=== PATIENT | male | born 1955 | race Caucasian/White ===

== ENCOUNTER → 2017-11-01 | Outpatient (CLI) | payer OTHER ==
[~2017-11-01] VITALS: Ht 182.9 cm; Wt 143.8 kg
[~2017-11-01] MED LIST: AFRIN; ALLOPURINOL 30300 M3; AMOXICILLIN 50500 MG PO; BLEPH-105 ML OPHTHALMIC; CARVEDILOL25 MG; CIPROFLOXIN HC2.5 M1 OTIC; FLOMAX0.4 MG PO; FLONASE 0.05%50 MCG NASAL; HUMALOG KW200 UNIT/1 PO; HUMALOG100 UNIT/1; IBUPROFEN 800800 M1 PO; INDOCIN50 MG PO; INVOKANA300 MG PO; LANTUS100 UNIT/M SUBQ; LOSARTAN-HCTZ1 EAC3 PO; METFORMIN HCL500 MG PO; MUCINEX DM ER1 EAC1 PO; NORCO 5-325 TA1 EACH PO; NORVASC5 MG PO; NUVIGIL250 MG PO; OXYCODONE HCL 55 MG PO; PATANASE30.5 GM; PERCOCET PO; PREDNISONE 20 M20 M1 PO; PRILOSEC 20 MG20 MG PO; PROMETHAZINE D480 ML PO; ROXICODONE15 M1; ROXICODONE15 M1 PO; TESSALON PERLE100 MG PO; TRILIPIX135 MG; XANAX XR1 MG; ZANAFLEX4 MG PO; ZESTRIL20 MG; [UNRECOGNIZED DRUG - OTHER]
--- NOTE | ~2017-11-01 | HPC ---
[facility] [place] [address] PAIN MANAGEMENT CONSULTATION Name: RAYNALO YOONN Room #: REG ENOCH Shrestha.#: [id number] Admission: 11/01/17 Attend Phys: Abdoul Fletcher DO Discharge: Date of : 51 Report #: [id number] THIS REPORT FOR: //name// CC: Abdoul Smith DATE OF SERVICE: 11/09/2017 REFERRING PHYSICIAN: Shelby Smith DO. CHIEF COMPLAINT: Anterior thigh pain, bilateral lower extremity pain with paresthesias, peripheral neuropathy. HISTORY OF PRESENT ILLNESS: As you know, the patient is a 62-year-old male, referred to our service for anterior thigh pain, bilateral lower extremity pain and paresthesia secondary to peripheral neuropathic pain. He has been diagnosed with progressively worsening diabetic peripheral neuropathy, believed to be the source of his symptoms. He was referred to our clinic to assist with medication management. He returns today in followup visit here at our [facility] office for refill of medications. He is taking Roxicodone 15 mg 3 times a day and does note good benefit with its use. He returns today requesting refill of this medication. We discussed at length today the CDC's guidelines for opioid medication usage. He is taking currently 67.5 morphine equivalents a day under the 90 morphine equivalent recommended. He returns today with 80% improvement in overall pain, requesting refill of medications. ALLERGIES: CODEINE, FENTANYL. CURRENT MEDICATIONS: Allopurinol, alprazolam, Tessalon Perles, Invokana, Triplex, Flonase, guaifenesin, metformin, Indocin, Humalog, lispro, Zestril, losartan/hydrochlorothiazide, oxycodone. SOCIAL HISTORY: The patient denies current tobacco use. He is a reformed smoker. Denies IV or illicit drug use. Denies any chronic alcohol use. He is unaccompanied today. IMAGING: No new imaging available. PQRS: The patient has known osteoarthritis. No rheumatoid arthritis. He is not a fall risk, has not had a fall in last 3 months. He is treated for hypertension, but is not taking any blood thinners. He is placing his pain score today at 3/10. He is at a moderate risk for opioid abuse given his history of chronic smoking. PHYSICAL EXAMINATION: VITAL SIGNS: Blood pressure 154/80, pulse 70, respiratory rate 18, unlabored. [facility] [address] [place] [address] PAIN MANAGEMENT CONSULTATION Name: ALO DAVIS Room #: REG CLI [facility].#: [id number] Admission: 11/01/17 Attend Phys: Abdoul Fletcher DO Discharge: Date of : 51 Report #: [id number] The patient 93% on room air, height 6 feet tall, weight 317 pounds, BMI calculated 43. GENERAL: Well-developed, well-nourished, well-hydrated, class 3 morbidly obese, 62-year-old male. He appears his stated age. He is placing pain score today around 3/10. HEENT: Normocephalic, atraumatic. Pupils are equal, round, reactive to light. Extraocular muscles are intact. EXTREMITIES: Show no clubbing, no cyanosis, no edema. MUSCULOSKELETAL: Seated straight leg raising negative. Supine straight leg raising negative. ANTWAN test negative. Modified Gaenslen's positive for axial low back pain. Ankle clonus negative. Babinski is negative. ASSESSMENT: 1. Bilateral lower extremity peripheral neuropathy. 2. Opioid dependency. 3. Diabetic peripheral neuropathy. 4. Morbid obesity. 5. Chronic intractable pain. PLAN: 1. The patient returns today in followup visit here at our [facility] office for refill of medications. Apparently, he was having difficulty obtaining an appointment at our [facility] office where he typically goes for medication management. He will be transferring back to their clinic to see Dr. Madrid in the future, but at present, he is out of his medication and need refills. He has been appropriate with the use of medication. He has not called for early refills nor is he asked for changes in the therapy. He appears to be doing well and is under the recommended CDC guidelines of no more than 90 morphine equivalents a day. We did discuss the possibility of adjusting medications in the very near future if CDC guidelines change, but at present, he is doing well and we wish to make no changes in therapy. 2. The patient was provided prescription of oxycodone 15 mg dose 1 tab p.o. t.i.d. I have given the patient #90, releases of today, 4 weeks from today, 8 weeks from today, 3 months' worth of medication. 3. The patient will follow up with Dr. Madrid at the [facility] office. If this is not possible, he can return to our clinic here at [facility] for continuation of therapy. <ELECTRONICALLY SIGNED> By: Abdoul Fletcher DO 11/15/17 0935 0830 [id number] Abdoul Fletcher DO /nt
[2017-11-01 12:38] VITALS: BP 154/80
== END ==
LOC: PAIN 07:05
DX: E11.42 Type 2 diabetes mellitus with diabetic polyneuropathy (principal); G62.9 Polyneuropathy, unspecified; G89.4 Chronic pain syndrome; E66.01 Morbid (severe) obesity due to excess calories; F11.20 Opioid dependence, uncomplicated

== ENCOUNTER → 2018-01-24 | Outpatient (CLI) | payer OTHER ==
[~2018-01-24] VITALS: Ht 182.9 cm; Wt 144.2 kg
[~2018-01-24] MED LIST changes: -ZESTRIL20 MG; +ZESTRIL20 MG PO
--- NOTE | ~2018-01-24 | HPC ---
[facility] [place] [address] PAIN MANAGEMENT CONSULTATION Name: CANDIEllenALO YOONN Room #: REG [facility] TitaSangeetaCarlene.#: [id number] Admission: 01/24/18 Attend Phys: Abdoul Fletcher DO Discharge: Date of : 53 Report #: [id number] THIS REPORT FOR: //name// CC: Abdoul Motley DATE OF SERVICE: 01/24/2018 REFERRING PHYSICIAN: Shelby Smith DO CHIEF COMPLAINT: Anterior thigh pain, bilateral lower extremity pain with paresthesias, peripheral neuropathy. HISTORY OF PRESENT ILLNESS: As you know, the patient is a 62-year-old male referred to our service for anterior thigh pain, bilateral lower extremity pain and paresthesias secondary to peripheral neuropathy. He has been diagnosed with progressively worsening diabetic peripheral neuropathy, believed to be the source of his symptoms. We originally saw the patient in our clinic at [facility]. He transferred his care to our [place] office for continuation of management of pain issues. He returns today in followup visit requesting refill on medications. He states pain is intermittent, shooting, burning, stabbing, places current pain score 2/10. States his pain is exacerbated with sitting, lying down, improves with medications, rest and relaxation as well as better control of his diabetes. He returns today in followup visit for medication management. He is denying any side effects with therapy. He has had no changes in medical history or any changes in his medications since our last visit. ALLERGIES: CODEINE, FENTANYL. CURRENT MEDICATIONS: Allopurinol, alprazolam, Tessalon Perles, Invokana, Triplex, Flonase, guaifenesin, metformin, Indocin, Humalog, lispro, Zestril, losartan and hydrochlorothiazide, oxycodone. SOCIAL HISTORY: He denies current use of tobacco. He is a former smoker. Denies IV or illicit drug use. Denies any chronic alcohol use. He is unaccompanied today. IMAGING: No new imaging available. PQRS: The patient has osteoarthritis of the bilateral hips, bilateral knees, low back. He does not have any rheumatoid arthritis. He is not a fall risk, has not had a fall in the last 3 months. He is treated for hypertension, but no blood thinners. He places his current pain score 2/10. Pain impact score 25/70, [id number]. [address] [address] PAIN MANAGEMENT CONSULTATION Name: ALO DAVIS Room #: REG CLI [facility]#: [id number] Admission: 01/24/18 Attend Phys: Abdoul Fletcher DO Discharge: Date of : 51 Report #: [id number] PHYSICAL EXAMINATION: VITAL SIGNS: Blood pressure 155/92, pulse 84, respiratory rate 22, unlabored. The patient is 97% on room air, height 6 feet tall, weight 317.5 pounds, BMI calculated 43.1. GENERAL: Well-developed, well-nourished, well-hydrated, class 3, morbidly obese 62-year-old male appearing stated age. He is in no acute distress. He is placing current pain score 2/10. HEENT: Normocephalic, atraumatic. Pupils equal, round, reactive to light. EXTREMITIES: Show no clubbing, no cyanosis, no edema. MUSCULOSKELETAL: Seated straight leg raising negative. Supine straight leg raising negative. Nae's test negative. Modified Gaenslen's positive for axial low back pain. Ankle clonus negative. Babinski is negative. There are no rashes, lesions or ulcerations over the lower legs. There is minor noted venous stasis in lower extremities. ASSESSMENT: 1. Bilateral lower extremity peripheral neuropathy. 2. Opioid dependency. 3. Diabetic peripheral neuropathy. 4. Morbid obesity. 5. Chronic intractable pain. PLAN: 1. The patient returns today in followup visit for medication management. We have reviewed the patient's recent drug screen, which was positive for oxycodone and its metabolites, otherwise normal urine drug screen. This is part of our monitoring program. After review of his drug screen, we discussed the continuation of opioid management. He feels the medications at 15 mg 3 times a day is working well for pain control. A total of 67 mg morphine equivalents per day. This is well into the higher range of medication use. I did describe to the patient our desire to keep him below 50 morphine equivalents a day. We will discuss a weaning at our next visit with the addition of a neuropathic pain medication to address his neuropathic symptoms. At this point, the patient wishes to continue his current medication therapy with adjustments being made at next visit to reduce his dose of oxycodone to a more appropriate baseline level. The patient is amenable and will make this adjustment at next visit. 2. The patient was provided prescription of oxycodone 15 mg dose 1 tab p.o. t.i.d., I have given the patient #90, releases of today, 4 weeks from today, 8 weeks from today, 3 months' worth of medication. 3. The patient will return to our clinic in 3 months. At that time, we will [address] [address] PAIN MANAGEMENT CONSULTATION Name: ALO DAVIS Room #: REG ENOCH Alba#: [id number] Admission: 01/24/18 Attend Phys: Abdoul Fletcher DO Discharge: Date of : 51 Report #: [id number] adjust his oxycodone medication and add neuropathic medication to address neuropathy of the lower extremity secondary to diabetes mellitus. <ELECTRONICALLY SIGNED> By: Abdoul Fletcher DO 01/25/18 1201 0742 1044 Abdoul Fletcher DO /nt
[2018-01-24 10:36] VITALS: BP 155/92
== END ==
LOC: PAIN 07:14
DX: E11.42 Type 2 diabetes mellitus with diabetic polyneuropathy (principal); E66.01 Morbid (severe) obesity due to excess calories; G89.4 Chronic pain syndrome; M79.662 Pain in left lower leg; F11.20 Opioid dependence, uncomplicated

== ENCOUNTER → 2018-07-05 | Outpatient (CLI) | payer OTHER ==
[~2018-07-05] VITALS: Ht 182.9 cm; Wt 143.0 kg
[~2018-07-05] MED LIST changes: +CRESTOR20 MG PO; +LEVEMIR100 UNIT/1 PO; +RANITIDINE HCL300 MG PO; +VIAGRA100 MG PO
--- NOTE | ~2018-07-05 | HPC ---
[facility] [place] [place] [address] PAIN MANAGEMENT CONSULTATION Name: RYANALO YOONN Room #: REG ENOCH RiversSangeetaCarlene.#: [id number] Admission: 07/05/18 Attend Phys: Abdoul Fletcher DO Discharge: Date of : 51 Report #: [id number] THIS REPORT FOR: //name// CC: Abdoul Smith DO DATE OF SERVICE: 07/05/2018 REFERRING PHYSICIAN: Shelby Smith DO. CHIEF COMPLAINT: Anterior thigh pain, bilateral lower extremity pain with paresthesias and peripheral neuropathy. HISTORY OF PRESENT ILLNESS: As you know, the patient is a 63-year-old male referred to our service for anterior thigh pain, bilateral lower extremity pain with paresthesias secondary to peripheral neuropathy. He has been diagnosed with progressively worsening diabetic peripheral neuropathy, believed to be the source of his symptoms. We have stabilized the patient on a dose of Percocet for which he received good benefit. He takes oxycodone 15 mg 3 times a day, total of 45 mg on a daily basis maximum equating to 67.5 morphine equivalents a day, below the CDC's recommended no greater than 90 morphine equivalents a day. He returns today in followup visit indicating a pain level of around 2/10, states that the medication in combination with changes in his daily activities, have improved his pain allowing him to go about activities of daily living without significant pain interference. He returns today to review recent drug screens as part of our monitoring program for our chronic opioid patients and to receive refill of medications. ALLERGIES: CODEINE and FENTANYL. CURRENT MEDICATIONS: Percocet, lovastatin, Viagra, ranitidine, Levemir, indomethacin, tizanidine, omeprazole, metformin, allopurinol, lisinopril, alprazolam, Invokana, losartan, hydrochlorothiazide and lispro. SOCIAL HISTORY: The patient denies current tobacco use. He is a reformed smoker. Denies IV or illicit drug use. Denies any chronic alcohol use. He is retired. He is unaccompanied today. IMAGING DATA: No new imaging available. PHYSICAL EXAMINATION: VITAL SIGNS: Blood pressure 135/67, pulse 71 and respiratory rate 14 and unlabored. The patient 93% on room air. Height 6 feet tall, weight 315.2 pounds and BMI calculated 42.7. GENERAL: Well-developed, well-nourished, well-hydrated, class 3, [place] [address] PAIN MANAGEMENT CONSULTATION Name: ALO DAVIS [facility] [id number] Admission: 07/05/18 Attend Phys: Abdoul Fletcher DO Discharge: Date of : 53 Report #: [id number] 63-year-old male, appears stated age, placing current pain score somewhere between 1-2/10. HEENT: Normocephalic an atraumatic. Pupils equal, round and reactive to light. Extraocular muscles are intact. Sclerae nonicteric without injection. NEUROLOGICAL: Cranial nerves 2 through 12 grossly intact. Speech is fluent. The patient deemed a fair historian. LUNGS: Clear. No wheeze, rhonchi or rales. CARDIOVASCULAR: Regular. No appreciable gallop or rub. ABDOMEN: Soft, obese and nontender. EXTREMITIES: Showing no clubbing, no cyanosis and no edema. MUSCULOSKELETAL: Seated straight leg raising remains negative. Supine straight leg raising negative. Nae's test negative. Modified Gaenslen's positive for some axial low back pain without radiation below the buttock area. Muscle bulk and tone is symmetrical in lower extremities. Gait appears normal. Tactile sensations are reportedly reduced in the distal portions of the L5 and S1 dermatomes. ASSESSMENT: 1. Bilateral lower extremity peripheral neuropathy. 2. Opioid dependency. 3. Diabetic peripheral neuropathy. 4. Morbid obesity. 5. Chronic intractable pain. PLAN: 1. The patient has returned today in followup visit for medication management. He feels medications are working beneficially for pain control. He is denying any side effects to medication including sleepiness, disorientation, confusion, mental slowing or constipation. He wishes to continue the therapy as directed. 2. We have reviewed the patient's recent drug screen obtained on 05/17/2017. It is showing positive for oxycodone, negative for all other illicit substances. 3. We will see the patient back in followup visit in 3 months for medication therapy to receive refill of medications. 4. We reviewed the fact that opiate medications are being used to provide analgesia adequate to support activities of daily living, not attempting to achieve a specific pain score on the 0-10 Visual Analog Scale. The current opiate medications are providing sufficient analgesia to allow the patient to participate in activities of daily living. The patient is not exhibiting any aberrant behavior suggestive of drug diversion. The patient is not having any adverse reactions to medications. The patient is not suffering from daytime somnolence or mental acuity changes. The patient is managing opiate-induced constipation with appropriate bybw-dcn-kljtehy agents and dietary considerations. The patient was counseled on concern for caution with operating a motor vehicle while using opiate medications. A physical exam was performed and the patient's functional status was evaluated. [address] [address] PAIN MANAGEMENT CONSULTATION Name: ALO DAVIS Room #: REG [facility]#: [id number] Admission: 07/05/18 Attend Phys: Abdoul Fletcher DO Discharge: Date of : 53 Report #: [id number] All patients with back pain were advised against the bed rest greater than 4 days and were advised to return to normal activities. Pain score assessment was noted and the treatment plan was reviewed with the patient. All current medications, both prescribed and OTC were reviewed and reconciled on the electronic medical record. Tobacco screening was accomplished and smoking cessation was advised when indicated. BMI was noted and diet/exercise modification was recommended for all patients following outside normal parameters. I reviewed with the patient today their responsibilities to safeguard prescription medications, reviewed their responsibility to utilize medications only as prescribed by the physician. They are to seek and receive pain medications only from 1 physician group ( [facility]). They are to use 1 pharmacy and keep the clinic informed if they change pharmacies. Their responsibilities include making followup visits in a timely fashion and to avoid abrupt discontinuation of medication usage. Their responsibilities further include bringing their medications (bottles from the pharmacy with residual pills) to the visit for possible confirmation of pill counts and the patient understands it is their responsibility to submit to random drug screens to ensure both that the medications prescribed are present, and that no other controlled substances are present. All prescriptions provided today were generated electronically. 5. The patient was provided prescription of oxycodone 15 mg dose 1 tab p.o. t.i.d. I have given the patient #90, releases of today, 4 weeks from today, 8 weeks from today, 3 months' worth of medication. Total morphine equivalents 67.5 morphine equivalents per day. By: [id number] Abdoul Fletcher DO /nt
[2018-07-05 10:15] VITALS: BP 135/67
== END ==
LOC: PAIN 07-04 11:25
DX: M79.652 Pain in left thigh (principal); E11.40 Type 2 diabetes mellitus with diabetic neuropathy, unspecified; F17.200 Nicotine dependence, unspecified, uncomplicated; Z72.89 Other problems related to lifestyle; Z79.899 Other long term (current) drug therapy; Z79.891 Long term (current) use of opiate analgesic

== ENCOUNTER → 2018-09-22 | Outpatient (CLI) | payer OTHER ==
[~2018-09-22] VITALS: Ht 182.9 cm; Wt 142.4 kg
[2018-09-22 10:11] VITALS: BP 143/87
--- NOTE | 2018-09-22 10:15 | NUR ---
Pain Clinic Assessment: 1. History of Osteoarthritis: Not Applicable History of Rheumatoid Arthritis: Not Applicable 2. Height: 6 ft. 0 in. 182.9 cm. Weight: 314.0 lb. oz. 142.430 kg. Patient's BMI: 42.6 3. Vital Signs: BP: 143/87 Pulse: 75 Resp: 16 Temp: 02 Sat: 96 ECG Mon: 4. Pain Intensity: 2 5. Fall Risk: Dizziness: N Needs help standing or walking: N Fallen in the last 3 months: N Fall risk comments: 6. Patient on Blood Thinner: None 7. History of Hypertension: Y 8. Opioid Therapy greater than 6 weeks: Y Opiate Contract Signed: 01/24/18 9. Risk Assessment Tool Provided: Opioid Risk Tool 10. Functional Assessment Tool: 11. Recreational Drug Use: Never Drug Type: Tobacco Use: Former Smoker Tobacco Type: Amount or Packs/day: How Many Years: Alcohol Use: No Frequency: Quant:
--- NOTE | 2018-09-25 14:00 | HPC ---
[facility] [place] [address] PAIN MANAGEMENT CONSULTATION Name: ALO DAVIS Room #: REG Devorah Alba#: [id number] Admission: 09/22/18 ������������������ Attend Phys: Ester Linares Discharge: ������������������ Date of : 51 Report #: [id number] THIS REPORT FOR: //name// CC: Ester Smith DATE OF SERVICE: 09/22/2018 CHIEF COMPLAINT: Anterior thigh pain with bilateral lower extremity pain with paracentesis and peripheral neuropathy. HISTORY OF PRESENT ILLNESS: This is a very pleasant 63-year-old gentleman who returns to the pain clinic today for his anterior thigh pain secondary to his peripheral neuropathy. He was diagnosed with diabetic peripheral neuropathy and he has been stable on his Percocet for quite some time. He tells me that it is a sharp, burning, shooting, stabbing pain in his left thigh, but his pain medicine is very helpful in relieving this and rates his pain score as a 2/10 today. He tells me that he does not have any constipation. His pain is worse when he is sitting and standing. He tells me he is having to change his primary care doctor who has moved from out of the [facility] system. He will now be seeing a nurse practitioner at [facility] for his medications other than his narcotics because of the changes from his long-term primary care doctor moving this new place where he is going, we will not fill his Xanax for him, so he is seeing a psychiatrist for his anxiety issues that will refill his Xanax that he takes on a p.r.n. basis. The patient just needs a refill of his medications today. ALLERGIES: CODEINE, FENTANYL. MEDICATIONS: Oxycodone 15 mg every 8 hours p.r.n., Crestor 20 mg daily, Viagra as needed, Zantac 300 mg at bedtime, Levemir 100 units at bedtime, Indocin 50 mg daily, tizanidine 4 mg t.i.d. as needed, omeprazole 20 mg daily, metformin 1000 mg b.i.d., Humalog 80 units prior to meals, losartan, hydrochlorothiazide daily, Invokana 300 mg daily, Trilipix 135 mg daily, Xanax as needed, lisinopril 20 mg daily and allopurinol 300 mg daily. PQRS: 1. The patient denies any osteoarthritis or rheumatoid arthritis. 2. Height is 6 feet, weight is 314, BMI is 42. 3. Vital signs: Blood pressure 143/87, pulse is 75, respirations 16, oxygen sat is 96. 4. Pain score is 2. 5. Fall risk. Denies dizziness, does not need help walking or standing and has not fallen in the last 3 months. 6. The patient is not on any blood thinners. He does take medicines for hypertension. 7. Opioid therapy is greater than 6 weeks; therefore, an opioid signed contract [address] [address] PAIN MANAGEMENT CONSULTATION Name: ALO DAVIS Room #: REG CL Anjali#: [id number] Admission: 09/22/18 ������������������ Attend Phys: Ester Linares Discharge: ������������������ Date of : 51 Report #: [id number] is on the chart. His risk assessment tool is low. His functional assessment is 25/70. 8. Recreational drug use, he denies. He is not a smoker and does not drink alcohol. We did check the prescription monitoring system. The patient is filling appropriately all of his medications from Dr. Fletcher. We will repeat the drug screen on his next visit. He is due for that. PHYSICAL EXAMINATION: GENERAL: This is a well-developed, well-nourished, well-hydrated, class 3, morbidly obese 63-year-old gentleman who appears his stated age, placing his pain score 2 today. HEENT: Normocephalic, atraumatic. Pupils equal, round and reactive to light. Extraocular eye muscles are intact. MUSCULOSKELETAL: Seated straight leg raising remains negative. Muscle bulk and tone is symmetrical in lower extremities. Gait appears normal. Does complain of pain in his left outer aspect of his thigh. ASSESSMENT: 1. Bilateral lower extremity peripheral neuropathy. 2. Opioid dependency. 3. Diabetic peripheral neuropathy. 4. Morbid obesity. 5. Chronic intractable pain. We reviewed the fact that opiate medications are being used to provide analgesia adequate to support activities of daily living, not attempting to achieve a specific pain score on the 0-10 Visual Analog Scale. The current opiate medications are providing sufficient analgesia to allow the patient to participate in activities of daily living. The patient is not exhibiting any aberrant behavior suggestive of drug diversion. The patient is not having any adverse reactions to medications. The patient is not suffering from daytime somnolence or mental acuity changes. The patient is managing opiate-induced constipation with appropriate mfbe-ici-pvjqawm agents and dietary considerations. The patient was counseled on concern for caution with operating a motor vehicle while using opiate medications. A physical exam was performed and the patient's functional status was evaluated. All patients with back pain were advised against the bed rest greater than 4 days and were advised to return to normal activities. Pain score assessment was noted and the treatment plan was reviewed with the patient. All current medications, both prescribed and OTC were reviewed and reconciled on the electronic medical record. Tobacco screening was accomplished and smoking cessation was advised when indicated. BMI was noted and diet/exercise modification was recommended for all patients following outside normal parameters. [facility] [address] [place] [address] PAIN MANAGEMENT CONSULTATION Name: ALO DAVIS Room #: REG ENOCH Shrestha.#: [id number] Admission: 09/22/18 ������������������ Attend Phys: Ester Linares Discharge: ������������������ Date of : 51 Report #: [id number] I reviewed with the patient today their responsibilities to safeguard prescription medications, reviewed their responsibility to utilize medications only as prescribed by the physician. They are to seek and receive pain medications only from 1 physician group ( [facility]). They are to use 1 pharmacy and keep the clinic informed if they change pharmacies. Their responsibilities include making followup visits in a timely fashion and to avoid abrupt discontinuation of medication usage. Their responsibilities further include bringing their medications (bottles from the pharmacy with residual pills) to the visit for possible confirmation of pill counts and the patient understands it is their responsibility to submit to random drug screens to ensure both that the medications prescribed are present, and that no other controlled substances are present. All prescriptions provided today were generated electronically. PLAN: 1. The patient returns to the pain clinic today for refill of his medications. He tells me that they are very helpful. He denies any constipation or overmedication or sedation with this medication. He tells me that he takes them as needed basis, sometimes only requiring [address] Madrid did come and see the patient at this time and we refilled his oxycodone 15 mg every 8 hours #90 for today, 4-week release and 8-week release. 2. The patient tells me that he has changed primary care doctors, so that he is able to stay in the [facility] system, so he is able to get his insulin at a much reduced cost due to a senior data integration developer they have. He tells me that it cost him $12 a month where if he stayed with his primary care doctor that has moved out of the [facility] system, it would be $3000 a month. I do not have the doctor's name currently, but the patient will get that to us, so we can send dictations to them. He will also be seeing a psychiatrist now for his Xanax refills. I did talk to the patient about benzodiazepine and opioids. He has been on both of these for a long time, but we did discuss the risks of taking these together. 3. The patient will be seen in 3 month time period. The patient was seen in collaboration with Dr. Gonzalez Madrid who saw the patient and myself today. ��������������������������������������������� <ELECTRONICALLY SIGNED> ���������������������������������������� By: Ester Linares ��������������������������������������������� 09/25/18 1400 [id number] Ester Linares /krystal
== END ==
LOC: PAIN 09-20 13:38
DX: E11.42 Type 2 diabetes mellitus with diabetic polyneuropathy (principal); E66.8 Other obesity; G89.29 Other chronic pain; Z88.5 Allergy status to narcotic agent; Z88.8 Allergy status to other drugs, medicaments and biological substances; Z79.84 Long term (current) use of oral hypoglycemic drugs; Z79.891 Long term (current) use of opiate analgesic

== ENCOUNTER → 2018-12-18 | Outpatient (CLI) | payer OTHER ==
[~2018-12-18] VITALS: Ht 182.9 cm; Wt 139.1 kg
[2018-12-18 11:02] VITALS: BP 129/70
--- NOTE | 2018-12-18 11:12 | NUR ---
Pain Clinic Assessment: 1. History of Osteoarthritis: Not Applicable History of Rheumatoid Arthritis: Not Applicable 2. Height: 6 ft. 0 in. 182.9 cm. Weight: 306.6 lb. oz. 139.073 kg. Patient's BMI: 41.6 3. Vital Signs: BP: 129/70 Pulse: 76 Resp: 16 Temp: 02 Sat: 97 ECG Mon: 4. Pain Intensity: 1 5. Fall Risk: Dizziness: N Needs help standing or walking: N Fallen in the last 3 months: N Fall risk comments: 6. Patient on Blood Thinner: None 7. History of Hypertension: Y 8. Opioid Therapy greater than 6 weeks: Y Opiate Contract Signed: 01/24/18 9. Risk Assessment Tool Provided: Opioid Risk Tool 10. Functional Assessment Tool: 11. Recreational Drug Use: Never Drug Type: Tobacco Use: Former Smoker Tobacco Type: Amount or Packs/day: How Many Years: Alcohol Use: No Frequency: Quant:
--- NOTE | 2018-12-19 09:04 | HPC ---
[facility] [place] [address] PAIN MANAGEMENT CONSULTATION Name: RYANALO YOONN Room #: REG [facility] Henrietta.#: [id number] Admission: 12/18/18 ������������������ Attend Phys: Ester Linares Discharge: ������������������ Date of : 51 Report #: [id number] THIS REPORT FOR: //name// CC: Ester Smith DATE OF SERVICE: 12/18/2018 CHIEF COMPLAINT: Anterior thigh pain with bilateral lower extremity pain and paresthesias and peripheral neuropathy. HISTORY OF PRESENT ILLNESS: This is a very pleasant 63-year-old gentleman who returns to the pain clinic today for his anterior thigh pain secondary to peripheral neuropathy. He was diagnosed with diabetic peripheral neuropathy in the past and has been very stable on his current pain regimen. He tells me his pain score is a 1 today. He takes 1 pill twice a day with occasionally requiring 4 pills a day and some days only 2. His pain is worse with sitting and standing, lying down. His medications are very helpful. He denies any problems with constipation. He does take MiraLax on a regular basis. He does not feel over sedated with this medicine. He finds that it is very helpful in keeping him active with his daily life and benefits his pain significantly. ALLERGIES: CODEINE AND FENTANYL. MEDICATIONS: Oxycodone 15 mg p.r.n., Crestor 20 mg daily, Viagra as needed, Zantac 300 mg at bedtime, Levemir at bedtime, Indocin p.r.n., tizanidine 4 mg p.r.n. spasms, Prilosec 20 mg daily, Glucophage 1000 mg b.i.d., Humalog 80 units daily, losartan/hydrochlorothiazide daily, Invokana 300 mg daily, Trilipix 135 mg daily, Xanax as needed, Zestril 20 mg daily, Nuvigil p.r.n., allopurinol 300 mg daily. PQRS: 1. Denies any history of osteoarthritis or rheumatoid arthritis. 2. Height is 6 feet, weight is 306, BMI is 41. Vital signs 129/70, pulse is 76, respirations 16, oxygen sat is 97. 3. Pain score is 1/10. 4. Fall risk. Denies dizziness. He does not need help with walking or standing. He has not fallen in the last 3 months. 5. The patient is not on any blood thinners, does take medicine for hypertension. 6. Opioid therapy is greater than 6 weeks; therefore, an opioid signed contract is on the chart. His risk assessment tool is low. His functional assessment is 25/70. 7. Recreational drug use, he denies. He is a former smoker and does not drink alcohol. [address] [address] PAIN MANAGEMENT CONSULTATION Name: ALO DAVISN Room #: REG CL Anjali#: [id number] Admission: 12/18/18 ������������������ Attend Phys: Ester Linares Discharge: ������������������ Date of : 51 Report #: [id number] We did check the prescription monitoring system. The patient is filling appropriately for his narcotics from doctors within our clinic. He is on time for his medication fill. We will check a random urine drug screen on this patient today. PHYSICAL EXAMINATION: GENERAL: This is a well-developed, well-nourished, well-hydrated class 3, morbidly obese 63-year-old gentleman who appears his stated age. Placing his pain score today at 1/10. He is alert and oriented. HEENT: Normocephalic, atraumatic. Pupils equal, round and reactive to light. Extraocular eye muscles are intact. Mucous membranes are moist. MUSCULOSKELETAL: Seated straight leg raising remains negative. Muscle bulk and tone is symmetrical in his lower extremities. Gait appears normal. He complains of left outer aspect pain in his left thigh. ASSESSMENT: 1. Bilateral lower extremity peripheral neuropathy. 2. Opioid dependency. 3. Diabetic peripheral neuropathy. 4. Morbid obesity. 5. Chronic intractable pain. We reviewed the fact that opiate medications are being used to provide analgesia adequate to support activities of daily living, not attempting to achieve a specific pain score on the 0-10 Visual Analog Scale. The current opiate medications are providing sufficient analgesia to allow the patient to participate in activities of daily living. The patient is not exhibiting any aberrant behavior suggestive of drug diversion. The patient is not having any adverse reactions to medications. The patient is not suffering from daytime somnolence or mental acuity changes. The patient is managing opiate-induced constipation with appropriate lioa-ixp-cqoyaue agents and dietary considerations. The patient was counseled on concern for caution with operating a motor vehicle while using opiate medications. A physical exam was performed and the patient's functional status was evaluated. All patients with back pain were advised against the bed rest greater than 4 days and were advised to return to normal activities. Pain score assessment was noted and the treatment plan was reviewed with the patient. All current medications, both prescribed and OTC were reviewed and reconciled on the electronic medical record. Tobacco screening was accomplished and smoking cessation was advised when indicated. BMI was noted and diet/exercise modification was recommended for all patients following outside normal parameters. I reviewed with the patient today their responsibilities to safeguard prescription medications, reviewed their responsibility to utilize medications [address] [address] PAIN MANAGEMENT CONSULTATION Name: ALO DAVIS Room #: REG [facility]#: [id number] Admission: 12/18/18 ������������������ Attend Phys: Ester JAEGER Vijay Discharge: ������������������ Date of : 51 Report #: [id number] only as prescribed by the physician. They are to seek and receive pain medications only from 1 physician group ( [facility]). They are to use 1 pharmacy and keep the clinic informed if they change pharmacies. Their responsibilities include making followup visits in a timely fashion and to avoid abrupt discontinuation of medication usage. Their responsibilities further include bringing their medications (bottles from the pharmacy with residual pills) to the visit for possible confirmation of pill counts and the patient understands it is their responsibility to submit to random drug screens to ensure both that the medications prescribed are present, and that no other controlled substances are present. All prescriptions provided today were generated electronically. PLAN: 1. We discussed treatment options with the patient today. The patient finds the medications are very helpful in controlling his pain and would like refills of that medication today. Scripts given for oxycodone 15 mg #90 for today, 4 and 8-week release. According to the CDC guidelines, the patient falls in his current morphine milliequivalent at 90. It is a hardship for the patient to come every [address], [address] Dr. Abdoul Fletcher does allow him to come every 3 months since he has been stable on his medications for quite some time. 2. We did discuss side effects and complications of overmedication and constipation, but he feels like he is doing quite well on his current regimen. 3. Dr. Brayden Feng did see the patient today, partner of Dr. Fletcher, and collaborated care. The patient will return in 3 months for a followup appointment. ��������������������������������������������� <ELECTRONICALLY SIGNED> ���������������������������������������� By: Ester Linares ��������������������������������������������� 12/19/18 0904 [id number] [id number] Ester Linares /nt
== END ==
LOC: PAIN 06:45
DX: G89.29 Other chronic pain (principal); E11.42 Type 2 diabetes mellitus with diabetic polyneuropathy; G62.9 Polyneuropathy, unspecified; E66.8 Other obesity; Z88.8 Allergy status to other drugs, medicaments and biological substances; Z88.5 Allergy status to narcotic agent; Z79.899 Other long term (current) drug therapy; Z79.891 Long term (current) use of opiate analgesic; Z68.41 Body mass index [BMI] 40.0-44.9, adult

== ENCOUNTER → 2019-03-14 | Outpatient (CLI) | payer OTHER ==
[~2019-03-14] VITALS: Ht 182.9 cm; Wt 137.5 kg
[2019-03-14 13:16] VITALS: BP 141/77
--- NOTE | 2019-03-14 13:32 | NUR ---
Pain Clinic Assessment: 1. History of Osteoarthritis: Not Applicable History of Rheumatoid Arthritis: Not Applicable 2. Height: 6 ft. 0 in. 182.9 cm. Weight: 303.2 lb. oz. 137.531 kg. Patient's BMI: 41.1 3. Vital Signs: BP: 141/77 Pulse: 66 Resp: 18 Temp: 02 Sat: 96 ECG Mon: 4. Pain Intensity: 2 5. Fall Risk: Dizziness: N Needs help standing or walking: N Fallen in the last 3 months: N Fall risk comments: 6. Patient on Blood Thinner: None 7. History of Hypertension: Y 8. Opioid Therapy greater than 6 weeks: Y Opiate Contract Signed: 01/24/18 9. Risk Assessment Tool Provided: Opioid Risk Tool 10. Functional Assessment Tool: 11. Recreational Drug Use: Never Drug Type: Tobacco Use: Former Smoker Tobacco Type: Amount or Packs/day: How Many Years: Alcohol Use: No Frequency: Quant:
--- NOTE | 2019-03-15 15:33 | HPC ---
[facility] [address] [address] PAIN MANAGEMENT CONSULTATION Name: ALO DAVISN Room #: REG [facility]#: [id number] Admission: 03/14/19 Attend Phys: Ester Linares Discharge: Date of : 51 Report #: [id number] THIS REPORT FOR: //name// CC: Ester Linares Physician staff RICH VILLARREAL DATE OF SERVICE: 03/14/2019 CHIEF COMPLAINT: Anterior left thigh pain with bilateral lower extremity pain and paresthesias and peripheral neuropathy. HISTORY OF PRESENT ILLNESS: This is a very pleasant 64-year-old gentleman who returns to the pain clinic today for refill of his medications. He tells me he does average 3 pain pills a day, some days he has less pain is able to take one, other days his pain is exacerbated and he does take 4 pills a day. Today, he reports a pain score of 2/10 and it is a burning, sharp, stabbing, electrical pain in his left outer thigh. It is exacerbated by sitting and standing as well as lying down. His medications are very beneficial he feels. He denies any problems with daytime sleepiness or constipation with this medication. ALLERGIES: CODEINE AND FENTANYL. CURRENT LIST OF MEDICATIONS: Oxycodone 15 mg every 8 hours p.r.n., Crestor, Viagra, Zantac, Levemir, Indocin, tizanidine, Prilosec, Glucophage, Humalog, losartan/hydrochlorothiazide, Invokana, Trilipix, Xanax, Zestril, and allopurinol. PQRS: 1. He denies any history of osteoarthritis or rheumatoid arthritis. 2. Height is 6 feet, weight is 303, BMI is 41. 3. Vital signs: Blood pressure 141/77, pulse is 66, respirations 18, oxygen sat is 96. 4. Pain score is 2/10. 5. Fall risk: He denies dizziness. He does not need any help walking or standing, has not fallen in the last 3 months. 6. The patient is not on any blood thinners. He does take medicine for hypertension. 7. Opiate therapy is greater than 6 weeks; therefore, an opioid signed contract is on the chart. Her risk assessment tool is low. Functional assessment is 25/70. 8. Recreational drug use, he denies. He is a former smoker and does not drink alcohol. According to the prescription monitoring system, the patient is filling appropriately and is due to fill his medicine at the end of the week. We did [address] [address] PAIN MANAGEMENT CONSULTATION Name: ALO DAVIS Room #: REG Devorah Alba#: [id number] Admission: 03/14/19 Attend Phys: Ester Linares Discharge: Date of : 51 Report #: [id number] check a random drug screen on him in the last visit that was appropriate for his medications as well. PHYSICAL EXAMINATION: GENERAL: This is a well-developed, well-nourished, well-hydrated class 3, morbidly obese 64-year-old gentleman who appears his stated age. He is alert and orientated, placing his current pain score at 2/10 today. HEENT: Normocephalic. Pupils equal, round and reactive to light. Extraocular eye muscles are intact. Mucous membranes are moist. MUSCULOSKELETAL: Complains of pain in the left outer aspect of his left thigh. His seated straight leg raising remains negative. He has 4/5 strength in his lower extremities with equal Muscle bulk and tone. His gait is normal. ASSESSMENT: 1. Bilateral lower extremity peripheral neuropathy. 2. Left thigh pain. 3. Opioid dependency. 4. Diabetic peripheral neuropathy. 5. Morbid obesity. 6. Chronic intractable pain. We reviewed the fact that opiate medications are being used to provide analgesia adequate to support activities of daily living, not attempting to achieve a specific pain score on the 0-10 Visual Analog Scale. The current opiate medications are providing sufficient analgesia to allow the patient to participate in activities of daily living. The patient is not exhibiting any aberrant behavior suggestive of drug diversion. The patient is not having any adverse reactions to medications. The patient is not suffering from daytime somnolence or mental acuity changes. The patient is managing opiate-induced constipation with appropriate emco-eru-zvclvxc agents and dietary considerations. The patient was counseled on concern for caution with operating a motor vehicle while using opiate medications. A physical exam was performed and the patient's functional status was evaluated. All patients with back pain were advised against the bed rest greater than 4 days and were advised to return to normal activities. Pain score assessment was noted and the treatment plan was reviewed with the patient. All current medications, both prescribed and OTC were reviewed and reconciled on the electronic medical record. Tobacco screening was accomplished and smoking cessation was advised when indicated. BMI was noted and diet/exercise modification was recommended for all patients following outside normal parameters. I reviewed with the patient today their responsibilities to safeguard prescription medications, reviewed their responsibility to utilize medications only as prescribed by the physician. They are to seek and receive pain [address] [address] PAIN MANAGEMENT CONSULTATION Name: ALO DAVIS Room #: REG ENOCH Alba#: [id number] Admission: 03/14/19 Attend Phys: Ester Linares Discharge: Date of : 51 Report #: [id number] medications only from 1 physician group ( [facility]). They are to use 1 pharmacy and keep the clinic informed if they change pharmacies. Their responsibilities include making followup visits in a timely fashion and to avoid abrupt discontinuation of medication usage. Their responsibilities further include bringing their medications (bottles from the pharmacy with residual pills) to the visit for possible confirmation of pill counts and the patient understands it is their responsibility to submit to random drug screens to ensure both that the medications prescribed are present, and that no other controlled substances are present. All prescriptions provided today were generated electronically. PLAN: 1. We discussed treatment options with the patient today. The patient is doing quite well on this current pain regimen of oxycodone 15 mg #90 for a 1-month supply. This places the patient at 67 morphine mEq per day, which is within the CDC guidelines. Three months of his medication were given today. 2. The patient denies any problems with constipation or overmedication from these medications. 3. The patient is seen in collaboration today with Dr. Abdoul Fletcher. The patient will return in 3 months' time. <ELECTRONICALLY SIGNED> By: Ester Linares 03/15/19 1533 [id number] Ester Linares /krystal
== END ==
LOC: PAIN 07:00
DX: M79.652 Pain in left thigh (principal); G89.4 Chronic pain syndrome; E11.42 Type 2 diabetes mellitus with diabetic polyneuropathy; F11.20 Opioid dependence, uncomplicated; E66.01 Morbid (severe) obesity due to excess calories; Z88.8 Allergy status to other drugs, medicaments and biological substances; Z79.899 Other long term (current) drug therapy

== ENCOUNTER → 2019-06-05 | Outpatient (CLI) | payer OTHER ==
[~2019-06-05] VITALS: Ht 182.9 cm; Wt 132.5 kg
[2019-06-05 08:09] VITALS: BP 123/87
--- NOTE | 2019-06-05 08:14 | NUR ---
Pain Clinic Assessment: 1. History of Osteoarthritis: Not Applicable History of Rheumatoid Arthritis: Not Applicable 2. Height: 6 ft. 0 in. 182.9 cm. Weight: 292.0 lb. oz. 132.451 kg. Patient's BMI: 39.6 3. Vital Signs: BP: 123/87 Pulse: 75 Resp: 16 Temp: 02 Sat: 94 ECG Mon: 4. Pain Intensity: 2.5 5. Fall Risk: Dizziness: N Needs help standing or walking: N Fallen in the last 3 months: N Fall risk comments: 6. Patient on Blood Thinner: None 7. History of Hypertension: Y 8. Opioid Therapy greater than 6 weeks: Y Opiate Contract Signed: 01/24/18 9. Risk Assessment Tool Provided: Opioid Risk Tool 10. Functional Assessment Tool: 11. Recreational Drug Use: Never Drug Type: Tobacco Use: Former Smoker Tobacco Type: Amount or Packs/day: How Many Years: Alcohol Use: No Frequency: Quant:
--- NOTE | 2019-06-05 12:48 | HPC ---
[facility] [place] [address] PAIN MANAGEMENT CONSULTATION Name: ALO DAVIS Room #: REG [facility].#: [id number] Admission: 06/05/19 Attend Phys: Abdoul Fletcher DO Discharge: Date of : 51 Report #: [id number] THIS REPORT FOR: //name// CC: Abdoul Fletcher Physician staff RICH Hargrove DATE OF SERVICE: 06/05/2019 CHIEF COMPLAINT: Low back pain, anterior thigh pain, bilateral lower extremity pain with paresthesias. HISTORY OF PRESENT ILLNESS: As you know, the patient is a very pleasant 64-year-old male who returns today in followup visit for refill of medications. He is placing pain intensity around 2-1/2/10. The patient unfortunately has recently lost his . Apparently 3 weeks ago, the patient and his were getting ready to leave for an appointment when she had a massive cerebrovascular accident leading to her demise. He has been quite depressed and has been dealing with this recent . He states that the activities around this and the planning and activities he has to do has exacerbated his pain. He has been taking his medication appropriately, but does indicate a higher pain level today. He returns today in followup visit for refill of medications. He indicates no other changes in his medical history. No injury, no trauma. He returns requesting refill of medications stating no side effects to medications. ALLERGIES: CODEINE AND FENTANYL. CURRENT MEDICATIONS: Oxycodone, lovastatin, Viagra, ranitidine, insulin, indomethacin, tizanidine, omeprazole, metformin, losartan, hydrochlorothiazide, Invokana, fenofibric acid, lisinopril, and allopurinol. SOCIAL HISTORY: The patient denies tobacco, alcohol, or IV illicit drug use. He is unaccompanied to today's visit. IMAGING: There is no new imaging available. PHYSICAL EXAMINATION: VITAL SIGNS: Blood pressure 123/87, pulse 75, respiratory rate 16 and unlabored. The patient is 94% on room air, height 6 feet tall, weigh 292 pounds, BMI calculated 39.6. GENERAL: Well-developed, well-nourished, well-hydrated exogenously obese 64-year-old male appearing stated age, pain is rated around 2-1/2 0/10. HEENT: Normocephalic, atraumatic. Pupils are equal, round, reactive to light. EXTREMITIES: Show no clubbing, no cyanosis, no edema. MUSCULOSKELETAL: Seated straight leg raising [place] [address] PAIN MANAGEMENT CONSULTATION Name: ALO DAVIS Room #: REG [facility].#: [id number] Admission: 06/05/19 Attend Phys: Abdoul Fletcher DO Discharge: Date of : 51 Report #: [id number] raising positive. Nae's test is negative. Modified Gaenslen's positive for axial low back pain. Gait appears somewhat antalgic. He is using a cane for ambulation. Lower extremity strength is reduced, but symmetrical. ASSESSMENT: 1. Bilateral lower extremity peripheral neuropathy. 2. Lumbar radiculopathy. 3. Diabetic peripheral neuropathy. 4. Opioid dependency. 5. Chronic intractable pain. PLAN: 1. The patient has returned today in followup visit to receive refill on medications for which he takes for pain control. He reports no side effects of sleepiness, disorientation, confusion, of mental slowing with use of therapy. He has been appropriate with his medication. Recent urine drug screen was reviewed that was obtained 12/18/2018 which shows positive for oxycodone and metabolites no other illicit substances. We have also reviewed the patient's PDMP and he is filling the medications appropriately. We reviewed the fact that opiate medications are being used to provide analgesia adequate to support activities of daily living, not attempting to achieve a specific pain score on the 0-10 Visual Analog Scale. The current opiate medications are providing sufficient analgesia to allow the patient to participate in activities of daily living. The patient is not exhibiting any aberrant behavior suggestive of drug diversion. The patient is not having any adverse reactions to medications. The patient is not suffering from daytime somnolence or mental acuity changes. The patient is managing opiate-induced constipation with appropriate ijkg-anj-jbhesuz agents and dietary considerations. The patient was counseled on concern for caution with operating a motor vehicle while using opiate medications. A physical exam was performed and the patient's functional status was evaluated. All patients with back pain were advised against the bed rest greater than 4 days and were advised to return to normal activities. Pain score assessment was noted and the treatment plan was reviewed with the patient. All current medications, both prescribed and OTC were reviewed and reconciled on the electronic medical record. Tobacco screening was accomplished and smoking cessation was advised when indicated. BMI was noted and diet/exercise modification was recommended for all patients following outside normal parameters. I reviewed with the patient today their responsibilities to safeguard prescription medications, reviewed their responsibility to utilize medications only as prescribed by the physician. They are to seek and receive pain medications only from 1 physician group ([facility]). They are to use [address] [address] PAIN MANAGEMENT CONSULTATION Name: ALO DAVIS Room #: REG ENOCH Alba#: [id number] Admission: 06/05/19 Attend Phys: Abdoul Fletcher DO Discharge: Date of : 51 Report #: [id number] pharmacy and keep the clinic informed if they change pharmacies. Their responsibilities include making followup visits in a timely fashion and to avoid abrupt discontinuation of medication usage. Their responsibilities further include bringing their medications (bottles from the pharmacy with residual pills) to the visit for possible confirmation of pill counts and the patient understands it is their responsibility to submit to random drug screens to ensure both that the medications prescribed are present, and that no other controlled substances are present. All prescriptions provided today were generated electronically. 2. The patient was provided a prescription of oxycodone 15 mg dose 1 tab p.o. t.i.d., I have given the patient #90, releasing today, 4 weeks from today, 8 weeks from today, 3 months' worth of medication. The patient did request that we release his current prescription early as he does have plans to undergo a trip and will be leaving before his prescription is ready to be released. We have agreed to provide this early release on the first dose of therapy. The patient will drop this off with his pharmacy and have them contact us in regard to this early release. 3. We will see the patient back in followup visit in 3 months, we wish him a good holiday season. We will see him back for refill of medications in 3 months. <ELECTRONICALLY SIGNED> By: Abdoul Fletcher DO 06/05/19 [id number] Abdoul Fletcher DO /krystal
== END ==
LOC: PAIN 06:41
DX: M54.16 Radiculopathy, lumbar region (principal); E11.42 Type 2 diabetes mellitus with diabetic polyneuropathy; F11.20 Opioid dependence, uncomplicated; G89.4 Chronic pain syndrome

== ENCOUNTER → 2019-08-21 | Outpatient (CLI) | payer OTHER ==
[~2019-08-21] VITALS: Ht 182.9 cm; Wt 129.1 kg
[2019-08-21 12:46] VITALS: BP 106/68
--- NOTE | 2019-08-21 13:00 | NUR ---
Pain Clinic Assessment: 1. History of Osteoarthritis: Not Applicable History of Rheumatoid Arthritis: Not Applicable 2. Height: 6 ft. 0 in. 182.9 cm. Weight: 284.6 lb. oz. 129.094 kg. Patient's BMI: 38.6 3. Vital Signs: BP: 106/68 Pulse: 73 Resp: 16 Temp: 02 Sat: 95 ECG Mon: 4. Pain Intensity: 2 5. Fall Risk: Dizziness: N Needs help standing or walking: N Fallen in the last 3 months: N Fall risk comments: 6. Patient on Blood Thinner: None 7. History of Hypertension: Y 8. Opioid Therapy greater than 6 weeks: Y Opiate Contract Signed: 01/24/18 9. Risk Assessment Tool Provided: Opioid Risk Tool 10. Functional Assessment Tool: 11. Recreational Drug Use: Never Drug Type: Tobacco Use: Former Smoker Tobacco Type: Amount or Packs/day: How Many Years: Alcohol Use: No Frequency: Quant:
--- NOTE | 2019-08-22 08:57 | HPC ---
[facility] [address] [address] PAIN MANAGEMENT CONSULTATION Name: ALO DAVIS Room #: REG [facility] MKaycee.#: [id number] Admission: 08/21/19 Attend Phys: Ester Linares Discharge: Date of : 51 Report #: [id number] THIS REPORT FOR: //name// CC: Ester Fletcher DO DATE OF SERVICE: 08/21/2019 CHIEF COMPLAINT: Low back pain, anterior thigh pain, bilateral lower extremity pain and paresthesias. HISTORY OF PRESENT ILLNESS: This is a very pleasant 64-year-old gentleman who returns to the pain clinic today for refill of his medications. He is reporting a pain score of 2/10. He feels that the medications are very beneficial in controlling his pain. He feels that he is on a good regimen with no side effects as a result and he feels that it is very beneficial in controlling his pain. He is able to be as active as he would like on his current regimen. The patient is tearful through some of his visit today. He reports that he lost his dog 3 days ago and that on top of losing his about 6 months ago, he reports that it has been a very difficult time for him. ALLERGIES: CODEINE AND FENTANYL. CURRENT LIST OF MEDICATIONS: Oxycodone 15 mg t.i.d. p.r.n., Crestor, Viagra, Zantac, insulin, indomethacin, tizanidine, omeprazole, Glucophage, Humalog, losartan, Invokana, Xanax, Trilipix, Zestril and allopurinol. PQRS: 1. He denies any osteo or rheumatoid arthritis. 2. Height is 6 feet, weight is 284, BMI is 38. 3. Vital signs 106/68, pulse is 73, respirations 16, oxygen sat is 95. 4. Pain score is 2/10. 5. Denies dizziness, does not need help walking or standing, has not fallen in the last 3 months. 6. The patient is not on any blood thinners, but does take medicine for hypertension. Opioid therapy is greater than 6 weeks; therefore, an opiate signed contract is on the chart. 7. Risk assessment tool is low. Functional assessment is 2570. 8. Recreational drug use, he denies. He is a former smoker and does not drink alcohol. According to the prescription monitoring system, the patient is filling appropriately from our physician in an appropriate timeframe. He is due next week to fill his medications. There is a recent drug screen on the chart that [address] [address] PAIN MANAGEMENT CONSULTATION Name: CANDIEllenALO DAMARI [id number] Admission: 08/21/19 Attend Phys: Ester Linares Discharge: Date of : 53 Report #: [id number] is appropriate as well. According to the CDC guidelines, his morphine mEq per day is 60. PHYSICAL EXAMINATION: GENERAL: This is alert and orientated, well-developed exogenously obese 64-year-old gentleman, rating his pain score at 2/10. HEENT: Normocephalic, atraumatic. Pupils equal, round and reactive to light. EXTREMITIES: No clubbing, no cyanosis, no edema. MUSCULOSKELETAL: Gait appears somewhat antalgic. He does use a cane for ambulation. Lower extremity is symmetrical and reduced at 4/5. Seated straight leg raising is negative. ASSESSMENT: 1. Bilateral lower extremity peripheral neuropathy. 2. Lumbar radiculopathy. 3. Diabetic peripheral neuropathy. 4. Opioid dependency. 5. Chronic intractable pain. We reviewed the fact that opiate medications are being used to provide analgesia adequate to support activities of daily living, not attempting to achieve a specific pain score on the 0-10 Visual Analog Scale. The current opiate medications are providing sufficient analgesia to allow the patient to participate in activities of daily living. The patient is not exhibiting any aberrant behavior suggestive of drug diversion. The patient is not having any adverse reactions to medications. The patient is not suffering from daytime somnolence or mental acuity changes. The patient is managing opiate-induced constipation with appropriate qoeu-gsx-yvnwnhv agents and dietary considerations. The patient was counseled on concern for caution with operating a motor vehicle while using opiate medications. PLAN: 1. We discussed treatment options with the patient today. The patient finds the medications very beneficial in controlling his pain with limited or no side effects of sleepiness, disorientation constipation issues. He feels they are very beneficial. We will have Dr. Abdoul Fletcher e-prescribe oxycodone 15 mg #90 for today 4-week and 8-week to his pharmacy. 2. The patient did see Dr. Abdoul Fletcher today who also helped collaborate care. The patient is instructed to call for an appointment when he fills his last prescription. He verbalizes understanding. <ELECTRONICALLY SIGNED> By: Ester Linares 08/22/19 0857 1514 [id number] Ester Linares /krystal
== END ==
LOC: PAIN 06:50
DX: M54.16 Radiculopathy, lumbar region (principal); E11.42 Type 2 diabetes mellitus with diabetic polyneuropathy; R20.2 Paresthesia of skin; G89.4 Chronic pain syndrome; F11.20 Opioid dependence, uncomplicated; Z79.899 Other long term (current) drug therapy; Z88.5 Allergy status to narcotic agent; Z88.8 Allergy status to other drugs, medicaments and biological substances

== ENCOUNTER → 2019-11-21 | Outpatient (CLI) | payer OTHER ==
[~2019-11-21] VITALS: Ht 182.9 cm; Wt 131.9 kg
--- NOTE | ~2019-11-21 | HPC ---
[facility] [place] [place] [address] PAIN MANAGEMENT CONSULTATION Name: ALO DAVIS Room #: REG [facility]..#: [id number] Admission: 11/21/19 Attend Phys: Ester Linares Discharge: Date of : 51 Report #: [id number] THIS REPORT FOR: cc: RICH VILLARREAL Physician not on staff Ester Linares ~ CC: Ester Linares Physician staff RICH VILLARREAL DATE OF SERVICE: 11/21/2019 CHIEF COMPLAINT: Low back pain, anterior thigh pain, bilateral lower extremity pain and paresthesias. HISTORY OF PRESENT ILLNESS: This is a 64-year-old gentleman who returns to the pain clinic today for a refill of his opioid medications that he finds very beneficial in helping relieve his pain that is mostly centrally located in his left anterior thigh, though he does have ongoing low back pain as well. He reports a pain score today at 3/10 that he describes as a stabbing, numbness and occasionally burning pain. It is worse with sitting and lying down and prolonged walking. He feels the medications are very beneficial and he denies any problems with daytime sleepiness or constipation as a result of the side effects from these medications. ALLERGIES: CODEINE AND FENTANYL. MEDICATIONS: Oxycodone 15 mg p.r.n., Crestor, Viagra, Levemir, Indocin, tizanidine, omeprazole, Glucophage, Humalog, losartan/hydrochlorothiazide, Invokana, fenofibrate, alprazolam, lisinopril and allopurinol. PQRS: 1. The patient denies any osteoarthritis or rheumatoid arthritis. 2. Height is 6 feet, weight is 290, BMI is 39. 3. Vital signs 123/69, pulse is 75, respirations 16, oxygen sat is 96. 4. Pain score is 3/10. 5. Denies dizziness, does not need help walking or standing, has not fallen in the last 3 months. 6. The patient is not on any blood thinners, but does take medicine for hypertension. Opioid therapy is greater than 6 weeks; therefore, an opioid signed contract is on the chart. Risk assessment is low. Functional assessment is . 7. Recreational drug use, he denies. He is a former smoker and does not drink alcohol. According to the prescription monitoring system, the patient has been filling [facility] [address] [place] [address] PAIN MANAGEMENT CONSULTATION Name: ALO DAVIS Room #: REG ENOCH Alba#: [id number] Admission: 11/21/19 Attend Phys: Ester Linares Discharge: Date of : 51 Report #: [id number] appropriately for his medications in a timely fashion. According to the CDC guidelines, his morphine mEq is 67 MMEs per day. There is a recent drug screen on the chart that we will repeat at his next visit. It is appropriate as well on his medications that he currently takes from us. He does take alprazolam from another physician and does understand the opioid, benzodiazepine risk. He tells me he takes his alprazolam very sparingly, not on a daily basis. PHYSICAL EXAMINATION: GENERAL: This is alert and orientated, morbidly obese 64-year-old gentleman who appears his stated age, placing his current pain score at 3/10 today. HEENT: Normocephalic, atraumatic. Pupils equal, round and reactive to light. EXTREMITIES: No clubbing, no cyanosis, no edema. MUSCULOSKELETAL: Seated straight leg raising is negative. Gait appears somewhat antalgic. He is using a cane for ambulation. His lower extremity strength is reduced, but symmetrical bilaterally. Numbness and tingling per his report and his left thigh. ASSESSMENT: 1. Bilateral lower extremity peripheral neuropathy. 2. Lumbar radiculopathy. 3. Diabetic peripheral neuropathy. 4. Opioid dependency. 5. Chronic intractable pain. We reviewed the fact that opiate medications are being used to provide analgesia adequate to support activities of daily living, not attempting to achieve a specific pain score on the 0-10 Visual Analog Scale. The current opiate medications are providing sufficient analgesia to allow the patient to participate in activities of daily living. The patient is not exhibiting any aberrant behavior suggestive of drug diversion. The patient is not having any adverse reactions to medications. The patient is not suffering from daytime somnolence or mental acuity changes. The patient is managing opiate-induced constipation with appropriate pcyi-bwl-kvxivzg agents and dietary considerations. The patient was counseled on concern for caution with operating a motor vehicle while using opiate medications. PLAN: 1. We discussed treatment options with the patient today. The patient finds his oxycodone very beneficial from Dr. Abdoul Fletcher. He reports he does take 2-3 tablets a day. He has been able to go slightly longer than a month in between some of his fills due to the fact of taking less on some days when he is having less pain. Today, we will have Dr. Abdoul Fletcher electronically signed his oxycodone 15 mg, #90, for today, 4-week and 8-week release to his [facility] pharmacy. 2. The patient understands the risk of COVID and has been very careful. He is wearing a mask today. He is worried that he will get the virus and he has been [address] [address] PAIN MANAGEMENT CONSULTATION Name: ALO DAVIS [facility] [id number] Admission: 11/21/19 Attend Phys: Ester Linares Discharge: Date of : 51 Report #: [id number] staying home for the majority of the time, though he states he is not having any problem with depression since he has been staying home. Due to the fact that he is not as active, he has been able to take less of his medications, which I continued to encourage in case there is a disruption of the supply chain. The patient is worried about going through withdrawal. I explained to him if he is not able to get his medicines, instructed to call us and we will discuss withdrawal-type symptoms to him, but hopefully this will not be the case. 3. The patient will be seen again in 3 months. The patient is seen today in collaboration with Dr. Abdoul Fletcher. By: [id number] Ester Linares /nt
[2019-11-21 12:41] VITALS: BP 123/69
--- NOTE | 2019-11-21 12:53 | NUR ---
Pain Clinic Assessment: 1. History of Osteoarthritis: Not Applicable History of Rheumatoid Arthritis: Not Applicable 2. Height: 6 ft. 0 in. 182.9 cm. Weight: 290.8 lb. oz. 131.906 kg. Patient's BMI: 39.4 3. Vital Signs: BP: 123/69 Pulse: 75 Resp: 16 Temp: 02 Sat: 96 ECG Mon: 4. Pain Intensity: 3 5. Fall Risk: Dizziness: N Needs help standing or walking: N Fallen in the last 3 months: N Fall risk comments: 6. Patient on Blood Thinner: None 7. History of Hypertension: Y 8. Opioid Therapy greater than 6 weeks: Y Opiate Contract Signed: 01/24/18 9. Risk Assessment Tool Provided: Opioid Risk Tool 10. Functional Assessment Tool: 11. Recreational Drug Use: Never Drug Type: Tobacco Use: Former Smoker Tobacco Type: Amount or Packs/day: How Many Years: Alcohol Use: No Frequency: Quant:
== END ==
LOC: PAIN 07:14
DX: M54.16 Radiculopathy, lumbar region (principal); E11.51 Type 2 diabetes mellitus with diabetic peripheral angiopathy without gangrene; G89.4 Chronic pain syndrome; Z79.891 Long term (current) use of opiate analgesic

== ENCOUNTER → 2020-02-12 | Outpatient (CLI) | payer OTHER ==
[~2020-02-12] VITALS: Ht 182.9 cm; Wt 130.1 kg
[2020-02-12 12:38] VITALS: BP 128/68
--- NOTE | 2020-02-12 12:56 | NUR ---
Pain Clinic Assessment: 1. History of Osteoarthritis: DENIES History of Rheumatoid Arthritis: DENIES 2. Height: 6 ft. 0 in. 182.9 cm. Weight: 286.8 lb. oz. 130.092 kg. Patient's BMI: 38.9 3. Vital Signs: BP: 128/68 Pulse: 75 Resp: 20 Temp: 02 Sat: 97 ECG Mon: 4. Pain Intensity: 3 5. Fall Risk: Dizziness: N Needs help standing or walking: N Fallen in the last 3 months: N Fall risk comments: 6. Patient on Blood Thinner: None 7. History of Hypertension: Y 8. Opioid Therapy greater than 6 weeks: Y Opiate Contract Signed: 01/24/18 9. Risk Assessment Tool Provided: Opioid Risk Tool 10. Functional Assessment Tool: 11. Recreational Drug Use: Never Drug Type: Tobacco Use: Former Smoker Tobacco Type: Amount or Packs/day: How Many Years: Alcohol Use: No Frequency: Quant:
--- NOTE | 2020-02-13 09:57 | HPC ---
[facility] [place] [address] PAIN MANAGEMENT CONSULTATION Name: RYANALO WETZEL Room #: REG [facility]..#: [id number] Admission: 02/12/20 Attend Phys: Ester Linares Discharge: Date of : 51 Report #: [id number] THIS REPORT FOR: cc: RICH VILLARREAL not on staff Ester Linares ~ CC: ARABELLA LOMBARDO DO DATE OF SERVICE: 02/12/2020 CHIEF COMPLAINT: Low back pain, anterior thigh pain, bilateral lower extremity pain and paresthesias. HISTORY OF PRESENT ILLNESS: This is a 64-year-old gentleman who is well known to the pain clinic. He returns today for refill of his medications that he takes to help treat his ongoing left anterior thigh pain. He does have some ongoing low back pain as well. He feels that the medications have been beneficial and denies any problems with constipation or daytime somnolence as a result of the medications. The patient does report that he does have anxiety disorders and does take alprazolam from his primary care doctor. He finds that this is beneficial in helping him relax. He understands that he should not take this with his opioid medications and has not been doing them. He states his pain has been slightly better lately since he has been staying home. 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 He feels that overall his pain has decreased slightly since we have seen him last. He is rating his pain score of 3/10 today, worse with walking and movement. Overall, he feels well controlled and would like refills of his medications. ALLERGIES: FENTANYL and CODEINE. CURRENT LIST OF MEDICATIONS: Oxycodone 15 mg t.i.d. p.r.n., Viagra, Levemir, indomethacin, Zanaflex, Prilosec, Glucophage, Humalog, losartan/hydrochlorothiazide, Invokana, Trilipix, Xanax, Zestril, and allopurinol. PQRS: 1. He denies any rheumatoid or osteoarthritis. 2. Height is 6 feet, weight is 286, BMI is 38.9, this is down 4 pounds since our last visit. 3. Vital signs 128/68, pulse is 75, respirations 20, oxygen sat is 97%. 4. Pain score is 3/10. 5. Denies dizziness, does not need help walking or standing, has not fallen in the last 3 months. 6. The patient is not on any blood thinners, [place] [address] PAIN MANAGEMENT CONSULTATION Name: ALO DAVIS [facility]: [facility] [id number] Admission: 02/12/20 Attend Phys: Ester Linares Discharge: Date of : 51 Report #: [id number] hypertension. 7. Opioid therapy is greater than 6 weeks; therefore, an opioid signed contract is on the chart. Risk assessment tool is low. Functional assessment is 30/70. 8. Recreational drug use, he denies. He is a former smoker and does not drink alcohol. According to the prescription monitoring system, the patient is due to fill his medications this week, filling them in a timely fashion. Again, he reports he does not take his alprazolam and oxycodone at the same time. According to the CDC guidelines, his morphine milliequivalent is 67 MMEs per day. We will collect a random drug screen on this patient today since it has not been tested for greater than a year. PHYSICAL EXAMINATION: GENERAL: This is alert and orientated, obese, well-developed 64-year-old gentleman who appears his stated age, placing his current pain score at 3/10. HEENT: Normocephalic, atraumatic. Extraocular eye muscles are intact. He is wearing a mask. EXTREMITIES: No clubbing, no cyanosis, no edema. MUSCULOSKELETAL: He has numbness and tingling in his left anterior thigh per his report. Gait appears somewhat antalgic. Lower extremity strength is reduced, but symmetrical. Seated straight leg raising is negative. Modified Gaenslen's is positive for axial low back pain. ASSESSMENT: 1. Bilateral lower extremity peripheral neuropathy. 2. Lumbar radiculopathy. 3. Diabetic peripheral neuropathy. 4. Opioid dependency. 5. Chronic intractable pain. We reviewed the fact that opiate medications are being used to provide analgesia adequate to support activities of daily living, not attempting to achieve a specific pain score on the 0-10 Visual Analog Scale. The current opiate medications are providing sufficient analgesia to allow the patient to participate in activities of daily living. The patient is not exhibiting any aberrant behavior suggestive of drug diversion. The patient is not having any adverse reactions to medications. The patient is not suffering from daytime somnolence or mental acuity changes. The patient is managing opiate-induced constipation with appropriate agrf-ixi-dbkgvak agents and dietary considerations. The patient was counseled on concern for caution with operating a motor vehicle while using opiate medications. PLAN: 1. We discussed treatment options with the patient today. He feels the medications are beneficial with very limited side effects. We will refill his [facility] [address] [place] [address] PAIN MANAGEMENT CONSULTATION Name: ALO DAVIS Room #: REG [facility]#: [id number] Admission: 02/12/20 Attend Phys: Ester Linares Discharge: Date of : 51 Report #: [id number] oxycodone 15 mg for today, 4-week and 8-week releases for #[address] Arabella Lombardo will send this electronically to his pharmacy. 2. The patient has lost 4 pounds since we have last seen him. 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 He was unable to do that due to COVID virus, so he has been busy at home. Otherwise, he has not changed his diet to lose this weight. 3. We will collect a random drug screen on this patient. 4. The patient is seen in collaboration with Dr. Arabella Lombardo. <ELECTRONICALLY SIGNED> By: Ester Linares 02/13/20 0957 [id number] Ester Linares /nt
== END ==
LOC: PAIN 06:57
PROVIDERS: ATTEND Clinical Nurse Specialist Adult Health
DX: E11.42 Type 2 diabetes mellitus with diabetic polyneuropathy (principal); M54.5 Low back pain; M79.605 Pain in left leg; M79.604 Pain in right leg; R20.2 Paresthesia of skin; G89.29 Other chronic pain; M54.16 Radiculopathy, lumbar region; F11.20 Opioid dependence, uncomplicated; Z88.8 Allergy status to other drugs, medicaments and biological substances

== ENCOUNTER → 2020-05-06 | Outpatient (CLI) | payer OTHER ==
--- NOTE | 2020-05-06 14:29 | HPC ---
[facility] [place] [address] PAIN MANAGEMENT CONSULTATION Name: ALO DAVIS Room #: REG [facility].#: [id number] Admission: 05/06/20 Attend Phys: Ester Linares Discharge: Date of : 51 Report #: [id number] CC: Ester Fletcher DO Physician staff RICH VILLARREAL MD DATE OF SERVICE: 05/06/2020 This is a Telemed appointment due to the patient experiencing symptoms of COVID that he has consented for from 8:55 to 9:15. CHIEF COMPLAINT: Low back pain, anterior thigh pain, bilateral lower extremity pain and paresthesias. HISTORY OF PRESENT ILLNESS: This is a 65-year-old gentleman who I am speaking with today for a telemedicine appointment. He is currently experiencing a fever of 101 degrees and having stomach issues of cramping, nausea and diarrhea. He reports he is not having any respiratory symptoms, but he is going to see a primary care physician to discuss his symptoms this afternoon. The patient has had a fever for the past 3 days. The patient reports a pain score of 2/10 currently, located in his left anterior thigh. He said that has been problematic for years. It is worse when he is doing activity. Today, he is reporting to me that the medications are beneficial. Normally, does not have any constipation, of course today, he is having diarrhea and no somnolence as a result of his medication. The patient does report he has continued to try to lose weight. He is unsure how many pounds he has lost since our last visit, though he reports he has lost some weight. He is not eating out like he had in the past prior to the of his . He is eating differently also due to the COVID virus and learning how to cook for himself. ALLERGIES: FENTANYL AND CODEINE. CURRENT LIST OF MEDICATIONS: Oxycodone 15 mg t.i.d., Crestor, Levemir, indomethacin, tizanidine, omeprazole, Glucophage, Humalog, losartan/hydrochlorothiazide, Invokana, Trilipix, alprazolam, Zestril, and allopurinol. PQRS: 1. He denies rheumatoid or osteoarthritis. 2. Height is 6 feet, unsure of weight today. 3. Vital signs were not recorded due to a telemedicine appointment. 4. Pain score is 2/10. 5. Fall risk. Denies dizziness, does not need help walking. He has not fallen in the last 3 months. 6. The patient is not on any blood thinners, but does take medicine for hypertension. 7. His opioid therapy is greater than 6 weeks; therefore, an opioid signed contract is on the chart. Risk assessment is low. Functional assessment is 30/70. 8. Recreational drug use, he denies. He is a former smoker and does not drink alcohol. According to the prescription monitoring system, the patient is due to fill his medications this week, filling them in a timely fashion. His morphine milliequivalent according to the CDC guidelines is 60. We will check a random drug screen on him at our next office visit. PHYSICAL EXAMINATION: This is a review of systems due to a telemedicine appointment. He is alert and orientated, answering all my questions appropriately, placing his current pain score at 2/10. He reports abdominal cramping today with nausea and diarrhea. No respiratory distress or issues. Pain in his right inner aspect of his thigh causing a burning sensation. ASSESSMENT: 1. Bilateral lower extremity peripheral neuropathy. 2. Lumbar radiculopathy. 3. Diabetic peripheral neuropathy. 4. Chronic opioid pain. 5. Opioid dependency. We reviewed the fact that opiate medications are being used to provide analgesia adequate to support activities of daily living, not attempting to achieve a specific pain score on the 0-10 Visual Analog Scale. The current opiate medications are providing sufficient analgesia to allow the patient to participate in activities of daily living. The patient is not exhibiting any aberrant behavior suggestive of drug diversion. The patient is not having any adverse reactions to medications. The patient is not suffering from daytime somnolence or mental acuity changes. The patient is managing opiate-induced constipation with appropriate vgmh-jwd-mytddom agents and dietary considerations. The patient was counseled on concern for caution with operating a motor vehicle while using opiate medications. PLAN: 1. We discussed treatment options with the patient today. I encouraged the patient to get COVID tested when he does see his primary care doctor this afternoon, explaining to him that nausea, diarrhea, and cramping is associated with COVID and since he does have a fever that he has had for 3 days, I encouraged him to be tested. The patient was unaware that GI symptoms were associated with COVID. He will ask to be tested this afternoon. 2. We will send electronically his oxycodone 15 mg, #90, for today and a 4-week supply. The patient then will return in 2 months. These will be sent electronically by Dr. Abdoul Fletcher. 3. We will check a random drug screen on this patient at his next visit. 4. The patient's Telemed was done in conjunction with Dr. Abdoul Fletcher today. <ELECTRONICALLY SIGNED> By: Ester Linares 05/06/20 1429 [id number] Ester Linares /nt
== END ==
LOC: TELEPC 06:50 → PAIN 06:50
PROVIDERS: ATTEND Clinical Nurse Specialist Adult Health
DX: M54.16 Radiculopathy, lumbar region (principal); R20.2 Paresthesia of skin; E11.40 Type 2 diabetes mellitus with diabetic neuropathy, unspecified; F11.20 Opioid dependence, uncomplicated; Z88.8 Allergy status to other drugs, medicaments and biological substances; Z79.899 Other long term (current) drug therapy

== ENCOUNTER → 2020-06-24 | Outpatient (CLI) | payer OTHER ==
[~2020-06-24] VITALS: Ht 182.9 cm; Wt 120.5 kg
[2020-06-24 10:05] VITALS: BP 112/61
--- NOTE | 2020-06-24 10:17 | NUR ---
Pain Clinic Assessment: 1. History of Osteoarthritis: DENIES History of Rheumatoid Arthritis: DENIES 2. Height: 6 ft. 0 in. 182.9 cm. Weight: 265.6 lb. oz. 120.476 kg. Patient's BMI: 36.0 3. Vital Signs: BP: 112/61 Pulse: 89 Resp: 16 Temp: 02 Sat: 98 ECG Mon: 4. Pain Intensity: 3 5. Fall Risk: Dizziness: N Needs help standing or walking: N Fallen in the last 3 months: N Fall risk comments: 6. Patient on Blood Thinner: None 7. History of Hypertension: Y 8. Opioid Therapy greater than 6 weeks: Y Opiate Contract Signed: 01/24/18 9. Risk Assessment Tool Provided: LOW-0 10. Functional Assessment Tool: 11. Recreational Drug Use: Never Drug Type: Tobacco Use: Former Smoker Tobacco Type: Amount or Packs/day: How Many Years: Alcohol Use: No Frequency: Quant:
--- NOTE | 2020-06-25 14:33 | HPC ---
[facility] [address] [place] [address] PAIN MANAGEMENT CONSULTATION Name: ALO DAVIS [facility] [id number] Admission: 06/24/20 Attend Phys: Ester Linares Discharge: Date of : 51 Report #: [id number] THIS REPORT FOR: cc: Shebly Smith Tara DO Hocker,Ester JAEGER ~ CC: Ester Fletcher DO DATE OF SERVICE: 06/24/2020 CHIEF COMPLAINT: Low back pain, anterior thigh pain, bilateral lower extremity pain and paresthesias. HISTORY OF PRESENT ILLNESS: This is a 65-year-old gentleman who returns to the pain clinic today for refill of his medications. We had done a telemedicine with him in May. At that time, he reported having stomach cramping, nausea and diarrhea and a fever for 3 days. We encouraged him to have a COVID test. He did not believe he had COVID but he did go and get tested at a [facility], which was positive for COVID. The patient reports he continued to have aches and pains and a fever for several more days. Now he believes he is fully recovered. He did not experience any respiratory issues throughout his illness and did not lose sense of taste or smell. The patient is here today for refills of his medication. Today, he is reporting a pain score of 3/10 in his outer left thigh and on the lateral aspect. He believes that his pain medication is very beneficial in controlling this discomfort with minimal side effects. He denies any problems with constipation or daytime somnolence. He reports it as a burning, shooting, occasional numbness feeling, especially if he is walking too long or prolonged sitting. ALLERGIES: FENTANYL AND CODEINE. CURRENT LIST OF MEDICATIONS: Oxycodone 15 mg every 8 hours, Crestor, Viagra, Levemir, Indomethacin, tizanidine, omeprazole, Glucophage, Humalog, losartan/hydrochlorothiazide, Invokana, Trilipix, alprazolam, Zestril, and allopurinol. PQRS: 1. He denies any rheumatoid or osteoarthritis. 2. Height is 6 feet, weight is 265, BMI is 36. 3. Vital signs; blood pressure 112/61, pulse is 89, respirations 16, oxygen sat is 98%. 4. Pain score is 3/10. 5. Denies any dizziness, does not need help walking or standing, has not fallen in the last 3 months. [facility] [address] [place] [address] PAIN MANAGEMENT CONSULTATION Name: ALO DAVIS Room #: REG [facility]#: [id number] Admission: 06/24/20 Attend Phys: Esetr Linares Discharge: Date of : 51 Report #: [id number] 6. The patient is not on any blood thinners. The patient has a history of hypertension. 7. Opioid therapy is greater than 6 weeks; therefore, an opioid signed contract is on the chart. Risk assessment is low. Functional assessment is 30/70. 8. Recreational drug use, he denies. He is a former smoker and does not drink alcohol. According to the prescription monitoring system, the patient is filling appropriately. He is due to fill his medications next week. His morphine milliequivalent is 67 MME per day. There is a drug screen from January that we are repeating that today, since it was positive for hydrocodone, that he did admit to taking some old medications. We will recheck this drug screen today. He is sure that there will be no further hydrocodone. He does take alprazolam and his oxycodone. PHYSICAL EXAMINATION: GENERAL: This is alert and orientated 65-year-old gentleman who appears his stated age, placing his current pain score at 3/10 today. HEENT: Normocephalic, atraumatic. Extraocular eye muscles are intact. He is wearing a mask. EXTREMITIES: No clubbing, no cyanosis, no edema. MUSCULOSKELETAL: Lower extremity strength is reduced, but symmetrical. Seated straight leg raising is negative. He does have numbness and tingling in his lateral aspect of his left thigh with diminished sensation. His gait is slightly antalgic. Modified ganglion is positive for axial low back pain. ASSESSMENT: 1. Bilateral lower extremity peripheral neuropathy. 2. Lumbar radiculopathy. 3. Diabetic peripheral neuropathy. 4. Opioid dependency. 5. Chronic intractable pain. We reviewed the fact that opiate medications are being used to provide analgesia adequate to support activities of daily living, not attempting to achieve a specific pain score on the 0-10 Visual Analog Scale. The current opiate medications are providing sufficient analgesia to allow the patient to participate in activities of daily living. The patient is not exhibiting any aberrant behavior suggestive of drug diversion. The patient is not having any adverse reactions to medications. The patient is not suffering from daytime somnolence or mental acuity changes. The patient is managing opiate-induced constipation with appropriate ylnz-fsh-pfxqfij agents and dietary considerations. The patient was counseled on concern for caution with operating a motor vehicle while using opiate medications. A physical exam was performed and the patient's functional status was evaluated. [address] [address] PAIN MANAGEMENT CONSULTATION Name: ALO DAVIS Room #: REG [facility] [id number] Admission: 06/24/20 Attend Phys: Ester Linares Discharge: Date of : 51 Report #: [id number] All patients with back pain were advised against the bed rest greater than 4 days and were advised to return to normal activities. Pain score assessment was noted and the treatment plan was reviewed with the patient. All current medications, both prescribed and OTC were reviewed and reconciled on the electronic medical record. Tobacco screening was accomplished and smoking cessation was advised when indicated. BMI was noted and diet/exercise modification was recommended for all patients following outside normal parameters. I reviewed with the patient today their responsibilities to safeguard prescription medications, reviewed their responsibility to utilize medications only as prescribed by the physician. They are to seek and receive pain medications only from 1 physician group ( [facility]). They are to use 1 pharmacy and keep the clinic informed if they change pharmacies. Their responsibilities include making followup visits in a timely fashion and to avoid abrupt discontinuation of medication usage. Their responsibilities further include bringing their medications (bottles from the pharmacy with residual pills) to the visit for possible confirmation of pill counts and the patient understands it is their responsibility to submit to random drug screens to ensure both that the medications prescribed are present, and that no other controlled substances are present. All prescriptions provided today were generated electronically. PLAN: 1. We discussed treatment options with the patient today. The patient's weight has been decreased since we last were able to wake him. He was not here in May due to the COVID virus that he had contracted, but his weight in January was 286. Today, it is 265, which is down significantly. The patient reports that he has changed his diet and has also started Invokana in the past year. He believes that may be the reason why he has lost significant weight. He will continue to monitor his weight at home. We did discuss his blood sugars, they have been running in the 110-160 on a daily basis, but since he has lost significant weight he should talk to his primary care doctor about his medications when he has his next A1c drawn. He reports it was in the range of 6 at his last visit before the weight loss. 2. We will recheck a random drug screen on the patient today. He reports not taking any further hydrocodone that he had taken in January. 3. We will refill his medication of oxycodone IR 15 mg tablets, #90. These will be released for 07/01, release in 5 weeks and release in 9 weeks. These will be sent electronically by Dr. Abdoul Fletcher to his pharmacy. The patient will return in 3 months' time period. <ELECTRONICALLY SIGNED> By: Ester Linares 06/25/20 1433 [id number] 29 Ester Linares /krystal
== END ==
LOC: PAIN 06:53
PROVIDERS: ATTEND Clinical Nurse Specialist Adult Health
DX: M54.16 Radiculopathy, lumbar region (principal); R20.2 Paresthesia of skin; G62.9 Polyneuropathy, unspecified; E11.40 Type 2 diabetes mellitus with diabetic neuropathy, unspecified; F11.20 Opioid dependence, uncomplicated; G89.29 Other chronic pain; Z88.8 Allergy status to other drugs, medicaments and biological substances; Z79.899 Other long term (current) drug therapy

== ENCOUNTER → 2020-09-23 | Outpatient (CLI) | payer OTHER ==
--- NOTE | 2020-09-23 15:01 | HPC ---
[facility] [place] [address] PAIN MANAGEMENT CONSULTATION Name: ALO DAVIS Room #: REG ENOCH Henrietta.#: [id number] Admission: 09/23/20 Attend Phys: Ester Linares Discharge: Date of : 51 Report #: [id number] THIS REPORT FOR: cc: Shelby Smith,Shelby Ponce,Ester JAEGER ~ DATE OF SERVICE: 09/23/2020 CHIEF COMPLAINT: Low back pain, anterior thigh pain, lower extremity pain and paresthesias. HISTORY OF PRESENT ILLNESS: This is a Telemed appointment that I am speaking via the telephone due to the patient's illness and fever. He has consented for this Telemed appointment, speaking from 12:55-13:10. Today, the patient reports not feeling very good, having a runny nose, but he has not lost his sense of taste or smell. He states he has been having a fever of 101 for 2 days. He did speak with his primary care doctor who encouraged him to get Thera-Flu. The patient is not going to be tested for COVID; he was diagnosed with COVID in May. I do not believe he would be positive again at this time. The patient does state that his pain in his left thigh today is a 3/10, worse with activity. It is a shooting, burning, numbness, discomfort. He believes the medications are beneficial in helping his overall pain. He does take gabapentin as well that does help with his neuropathy. He denies any constipation, though he does take a stool softener occasionally per his report. ALLERGIES: FENTANYL AND CODEINE. CURRENT LIST OF MEDICATIONS: Oxycodone 15 mg, Crestor, Viagra, Levemir, indomethacin, Zanaflex, Prilosec, Glucophage, Humalog, losartan/hydrochlorothiazide, Invokana, Trilipix, alprazolam, Zestril, allopurinol. PQRS: 1. He denies any osteo or rheumatoid arthritis. 2. Height, weight and vital signs are deferred. Pain score is 3/10 today. Fall risk, denies. Dizziness, does not need help walking, has not fallen in the last 3 months. The patient is not on any blood thinners. He does take medicine for hypertension. Opioid therapy is greater than 6 weeks; therefore, an opioid signed contract is on the chart. Risk assessment is low. Functional assessment is 30/70. 3. Recreational drug use, he denies. He is a former smoker [place] [address] PAIN MANAGEMENT CONSULTATION Name: ALO DAVIS Room #: REG [facility] DariusSangeeta#: [id number] Admission: 09/23/20 Attend Phys: Ester Linares Discharge: Date of : 51 Report #: [id number] According to the prescription monitoring system, he is due to fill his medications today. He does take alprazolam and that is monitored by his primary care doctor and appears to be filling appropriately as well. His morphine milliequivalent is 67 MMEs. There is a urine drug screen from his last visit that is appropriate for his opioid medications. It is appropriate as well. PHYSICAL EXAMINATION: Deferred. REVIEW OF SYSTEMS: He is alert and orientated, answering all my questions appropriately. He reports having a feeling of congestion in his nasal passages today, rating his pain score 3/10. He reports having a fever of 101. Pain is in his left thigh per his report. ASSESSMENT: 1. Bilateral lower extremity peripheral neuropathy. 2. Left thigh pain. 3. Opioid dependency. 4. Diabetic peripheral neuropathy. 5. Morbid obesity. 6. Chronic intractable pain, under written opioid agreement. PLAN: 1. We discussed treatment options with the patient today. The patient finds his medications are beneficial in helping with his pain. He is currently at the [facility] and would like to shrimp picker his prescriptions today if possible since he is out getting medications for his illness. We will have Dr. Abdoul Fletcher send his oxycodone 15 mg, #90, for today, release on 10/24/2020 and 11/18/2020. I explained that he is on his 28th day; his pharmacy may wait until his 30th day due to fill this medication. 2. I encouraged the patient to drink plenty of liquids since he is running a fever. I do not believe he has COVID again since he was sick and had a positive test less than 3 months ago, but it could be a possibility. He is not planning on getting COVID tested. 3. We did discuss his weight; per his report, it was 273 yesterday and continues Invokana. At his last visit, he was down to 265. I encouraged him to watch what he eats since he had done quite well on decreasing his weight. The patient reports he is not able to exercise since it is wintertime. I reminded him that he needs to be very cautious of his diet. 4. The patient will return in 3 months. At that time, we will see him in the clinic. The patient's care collaborated today with Dr. Abdoul Fletcher. <ELECTRONICALLY SIGNED> By: Ester Linares 09/23/20 1501 [id number] Ester Linares /krystal
== END ==
LOC: PAIN 06:56 → TELEPC 06:56 → PAIN 12:40
PROVIDERS: ATTEND Clinical Nurse Specialist Adult Health
DX: E11.40 Type 2 diabetes mellitus with diabetic neuropathy, unspecified (principal); E66.01 Morbid (severe) obesity due to excess calories; G89.4 Chronic pain syndrome; M79.652 Pain in left thigh; Z79.891 Long term (current) use of opiate analgesic

== ENCOUNTER → 2020-12-17 | Outpatient (CLI) | payer OTHER ==
[~2020-12-17] VITALS: Ht 182.9 cm; Wt 122.7 kg
[2020-12-17 11:16] VITALS: BP 142/81
--- NOTE | 2020-12-17 11:22 | NUR ---
Pain Clinic Assessment: 1. History of Osteoarthritis: DENIES History of Rheumatoid Arthritis: DENIES 2. Height: 6 ft. 0 in. 182.9 cm. Weight: 270.6 lb. oz. 122.744 kg. Patient's BMI: 36.7 3. Vital Signs: BP: 142/81 Pulse: 83 Resp: 16 Temp: 02 Sat: 97 ECG Mon: 4. Pain Intensity: 3 5. Fall Risk: Dizziness: N Needs help standing or walking: N Fallen in the last 3 months: N Fall risk comments: 6. Patient on Blood Thinner: None 7. History of Hypertension: Y 8. Opioid Therapy greater than 6 weeks: Y Opiate Contract Signed: 01/24/18 9. Risk Assessment Tool Provided: LOW-0 10. Functional Assessment Tool: 11. Recreational Drug Use: Never Drug Type: Tobacco Use: Former Smoker Tobacco Type: Amount or Packs/day: How Many Years: Alcohol Use: No Frequency: Quant: y
--- NOTE | 2020-12-24 08:22 | HPC ---
[facility] [place] [place] [address] PAIN MANAGEMENT CONSULTATION Name: ALO DAVIS Room #: REG ENOCH RiversSangeetaCarlene.#: [id number] Admission: 12/17/20 Attend Phys: Abdoul Fletcher DO Discharge: Date of : 51 Report #: [id number] THIS REPORT FOR: cc: Shelby Smith,Abdoul Wilkins DO ~ DOC #: [id number] cc: DO Abdoul Millan DO DATE OF SERVICE: 12/17/2020 REFERRING PHYSICIAN: Shelby Smith DO CHIEF COMPLAINT: Low back pain, bilateral lower extremity pain. HISTORY OF PRESENT ILLNESS: As you know, the patient is a pleasant 65-year-old male who has been followed for an extended period of time by our services for chronic low back pain, bilateral lower extremity pain due to lumbar radiculopathy. He is also suffering from peripheral neuropathy due to diabetic issues. He states that this combination of pain are well controlled with the use of oxycodone 15 mg 3 times a day. The patient is doing well with the medication, stating a pain level of no greater than 3/10. He has begun to rebuild his life after his 's . This led to some significant depression over the last year to year and a half. He has now got more active and feels his pain has improved. He is excited about his change in life situation returning today requesting refill of medications. He states that he is doing very well and wishes to continue treatment. He denies side effects from the medication. ALLERGIES: FENTANYL, CODEINE. CURRENT MEDICATIONS: Oxycodone 15 mg t.i.d., Crestor 20 mg once a day, insulin 100 units at bedtime, indomethacin 50 mg p.r.n., tizanidine 4 mg 3 times a day, omeprazole 20 mg 2 tabs once a day, metformin 500 mg 2 tabs b.i.d., Humalog 8 units before meal, losartan/hydrochlorothiazide 100/25 mg once a day, Invokana 300 mg once a day, alprazolam 1 mg once a day, lisinopril 20 mg per day, allopurinol 300 mg once a day. SOCIAL HISTORY: The patient denies tobacco, alcohol or IV or illicit drug use. He is retired. He is unaccompanied today. IMAGING: No new imaging available. PQRS: The patient has known arthritic changes of the cervical spine, lumbar spine. No rheumatoid arthritis. He is placing current pain score 3/10 is not a fall risk, has not had a fall in last 3 months. He is not on blood thinners, [address] [address] PAIN MANAGEMENT CONSULTATION Name: ALO DAVIS Room #: REG CL Anjali#: [id number] Admission: 12/17/20 Attend Phys: Abdoul Fletcher DO Discharge: Date of : 51 Report #: [id number] but is treated for hypertension. He is on chronic opioids, has a low opioid addiction potential. Pain impact is 30/70 moderate interference of daily activities secondary to pain. PHYSICAL EXAMINATION: VITAL SIGNS: Blood pressure 142/81, pulse 83, respiratory rate 16 and unlabored. The patient 97% on room air, height 6 feet tall, weight 270.6 pounds, BMI calculated 36.7. GENERAL: Well-developed, well-nourished, well-hydrated exogenously obese 65-year-old male, appearing stated age, pain is rated around 3/10. HEENT: normocephalic, atraumatic. Pupils equal, round and responsive to light. Speech is fluent. He is using a mask in compliance with COVID-19 regulations. EXTREMITIES: Show no clubbing, no cyanosis. No appreciable edema. MUSCULOSKELETAL: Lower extremity strength is equal and symmetrical 5/5 intact to light touch from L1 through S2 dermatomes. Seated straight leg raising negative. Supine straight leg raising negative. Fabere's test is negative. ASSESSMENT: 1. 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 2. Lumbar radiculopathy. 3. Opioid dependency. 4. Complicated medication management utilizing scheduled medications. 5. Chronic intractable pain. PLAN: 1. The patient returns today in followup visit requesting refill on medications. He feels medications are working beneficially for pain control. The patient is denying side effects of sleepiness, disorientation, confusion, mental slowing with use of the medication. He is very pleased with the changes he has made in his lifestyle. He states he is doing much better. The depression that he had around his 's recent has improved. He has met a woman and they are beginning to date and he feels that his life is on good and a new trajectory and this has improved his overall pain as he has not depressed. We are pleased to see he is doing better. We are hopeful this will continue. 2. We reviewed the fact that opiate medications are being used to provide analgesia adequate to support activities of daily living, not attempting to achieve a specific pain score on the 0-10 Visual Analog Scale. The current opiate medications are providing sufficient analgesia to allow the patient to participate in activities of daily living. The patient is not exhibiting any aberrant behavior suggestive of drug diversion. The patient is not having any adverse reactions to medications. The patient is not suffering from daytime somnolence or mental acuity changes. The patient is managing opiate-induced constipation with appropriate sefp-ebd-vvxuxup agents and dietary considerations. The patient was counseled on concern for caution with operating a motor vehicle while using opiate medications. [facility] [address] [place] [address] PAIN MANAGEMENT CONSULTATION Name: CANDIEllenALO DAMARI Room #: REG [facility]..#: [id number] Admission: 12/17/20 Attend Phys: Abdoul Fletcher DO Discharge: Date of : 51 Report #: [id number] A physical exam was performed and the patient's functional status was evaluated. All patients with back pain were advised against the bed rest greater than 4 days and were advised to return to normal activities. Pain score assessment was noted and the treatment plan was reviewed with the patient. All current medications, both prescribed and OTC were reviewed and reconciled on the electronic medical record. Tobacco screening was accomplished and smoking cessation was advised when indicated. BMI was noted and diet/exercise modification was recommended for all patients following outside normal parameters. I reviewed with the patient today their responsibilities to safeguard prescription medications, reviewed their responsibility to utilize medications only as prescribed by the physician. They are to seek and receive pain medications only from 1 physician group ( [facility]). They are to use 1 pharmacy and keep the clinic informed if they change pharmacies. Their responsibilities include making followup visits in a timely fashion and to avoid abrupt discontinuation of medication usage. Their responsibilities further include bringing their medications (bottles from the pharmacy with residual pills) to the visit for possible confirmation of pill counts and the patient understands it is their responsibility to submit to random drug screens to ensure both that the medications prescribed are present, and that no other controlled substances are present. All prescriptions provided today were generated electronically. 3. The patient was provided a prescription of oxycodone immediate release 15 mg tabs 1 tab p.o. t.i.d. I have given the patient, #90 tablets to release today 4 weeks from today, 8 weeks from today 3 months' worth of medication. All prescriptions sent via e-scribe to local pharmacy. The patient and I did review his PDMP of the last couple of months. We also reviewed his recent drug screen, all appears appropriate. 4. We will see the patient back in followup visit in 3 months. Abdoul Fletcher DO JEJ/WILLIS <ELECTRONICALLY SIGNED> By: Abdoul Fletcher DO 12/24/20 0822 [id number] Abdoul Fletcher DO /nt
== END ==
LOC: PAIN 10:59
PROVIDERS: ATTEND Anesthesiology Pain Medicine
DX: M79.661 Pain in right lower leg (principal); M79.662 Pain in left lower leg; M54.5 Low back pain; M54.16 Radiculopathy, lumbar region; G89.4 Chronic pain syndrome; Z79.899 Other long term (current) drug therapy; Z79.891 Long term (current) use of opiate analgesic; Z88.5 Allergy status to narcotic agent; Z88.1 Allergy status to other antibiotic agents

== ENCOUNTER → 2021-03-04 | Outpatient (CLI) | payer OTHER ==
[~2021-03-04] VITALS: Ht 180.3 cm; Wt 124.3 kg
[~2021-03-04] MED LIST changes: +MECLIZINE HCL25 M1 PO
[2021-03-04 11:36] VITALS: BP 144/86
--- NOTE | 2021-03-04 11:38 | NUR ---
Pain Clinic Assessment: 1. History of Osteoarthritis: DENIES History of Rheumatoid Arthritis: DENIES 2. Height: 5 ft. 11 in. 180.3 cm. Weight: 274.0 lb. oz. 124.286 kg. Patient's BMI: 38.2 3. Vital Signs: BP: 144/86 Pulse: 116 Resp: 16 Temp: 02 Sat: 96 ECG Mon: 4. Pain Intensity: 3 5. Fall Risk: Dizziness: N Needs help standing or walking: N Fallen in the last 3 months: N Fall risk comments: 6. Patient on Blood Thinner: None 7. History of Hypertension: Y 8. Opioid Therapy greater than 6 weeks: Y Opiate Contract Signed: 01/24/18 9. Risk Assessment Tool Provided: LOW-0 10. Functional Assessment Tool: 11. Recreational Drug Use: Never Drug Type: Tobacco Use: Former Smoker Tobacco Type: Amount or Packs/day: How Many Years: Alcohol Use: Yes Frequency: Quant:
== END ==
LOC: PAIN 07:03
PROVIDERS: ATTEND Clinical Nurse Specialist Adult Health
DX: M54.16 Radiculopathy, lumbar region (principal); G62.9 Polyneuropathy, unspecified; E11.40 Type 2 diabetes mellitus with diabetic neuropathy, unspecified; G89.4 Chronic pain syndrome; K08.89 Other specified disorders of teeth and supporting structures; Z79.891 Long term (current) use of opiate analgesic; Z79.899 Other long term (current) drug therapy

== ENCOUNTER → 2021-05-12 | Outpatient (CLI) | payer OTHER ==
[~2021-05-12] VITALS: Ht 180.3 cm; Wt 125.3 kg
[2021-05-12 11:16] VITALS: BP 106/65
--- NOTE | 2021-05-12 11:22 | NUR ---
Pain Clinic Assessment: 1. History of Osteoarthritis: DENIES History of Rheumatoid Arthritis: DENIES 2. Height: 5 ft. 11 in. 180.3 cm. Weight: 276.2 lb. oz. 125.284 kg. Patient's BMI: 38.5 3. Vital Signs: BP: 106/65 Pulse: 77 Resp: 16 Temp: 02 Sat: 96 ECG Mon: 4. Pain Intensity: 3 5. Fall Risk: Dizziness: N Needs help standing or walking: N Fallen in the last 3 months: N Fall risk comments: 6. Patient on Blood Thinner: None 7. History of Hypertension: Y 8. Opioid Therapy greater than 6 weeks: Y Opiate Contract Signed: 01/24/18 9. Risk Assessment Tool Provided: LOW-0 10. Functional Assessment Tool: 11. Recreational Drug Use: Never Drug Type: Tobacco Use: Former Smoker Tobacco Type: Amount or Packs/day: How Many Years: Alcohol Use: Yes Frequency: Weekly Quant: 2
--- NOTE | 2021-05-13 08:11 | HPC ---
[facility] [place] [address] PAIN MANAGEMENT CONSULTATION Name: ALO DAVIS Room #: REG [facility] M..#: [id number] Admission: 05/12/21 Attend Phys: Ester Linares Discharge: Date of : 51 Report #: [id number] THIS REPORT FOR: cc: Shelby Smith,Shelby Ponce,Ester JAEGER ~ cc: Shelby Smith DO, Abdoul Fletcher DO DATE OF SERVICE: 05/12/2021 CHIEF COMPLAINT: Low back pain, bilateral lower extremity pain. HISTORY OF PRESENT ILLNESS: This is a pleasant 66-year-old gentleman who returns to the pain clinic today for ongoing medication therapy. He continues to have discomfort in the low back that radiates in the left lateral aspect of his thigh, rating his pain score today at 3/10. At times, he reports that it is higher, especially with walking or prolonged sitting. He has a burning sensation that he describes as shooting at times with increased activity and feels overall the oxycodone is beneficial in decreasing his pain. He functions quite high when he is taking his medications. He denies any constipation or daytime somnolence as a result of his opioid medications. The patient has recovered from COVID and has had no long-lasting effects. He has also had his COVID vaccine. He is considering the booster, but is not eligible until early next year. ALLERGIES: FENTANYL AND CODEINE. CURRENT LIST OF MEDICATIONS: Oxycodone 15 mg p.r.n., Crestor, Levemir, indomethacin, tizanidine p.r.n., Prilosec, Glucophage, Humalog insulin, losartan/hydrochlorothiazide, Invokana, alprazolam p.r.n., Zestril and allopurinol. PQRS: 1. He denies osteo or rheumatoid arthritis. Height is 5 feet 11 inches, weight is 276. BMI is 38. 2. Vital signs: Blood pressure 106/65, pulse is 77, respirations 16, oxygen sat is 96%. 3. Pain score is 3/10. 4. Denies dizziness. Does not need help walking or standing. Has not fallen in the last 3 months. The patient is not on any blood thinners, but does have a history of hypertension. Opioid therapy is greater than 6 weeks; therefore, an opioid signed contract is on the chart. 5. Risk assessment is low. Functional assessment is 30/70. 6. Recreational drug use, he denies. He is a former smoker [place] [address] PAIN MANAGEMENT CONSULTATION Name: ALO DAVIS Room #: REG [facility].#: [id number] Admission: 05/12/21 Attend Phys: Ester Linares Discharge: Date of : 51 Report #: [id number] According to the prescription monitoring system, he is filling appropriately. His morphine mEq according to the CDC guidelines is 67 MME. He does fill on a monthly schedule. PHYSICAL EXAMINATION: GENERAL: This is alert and oriented, well-developed, slightly obese 66-year-old gentleman who appears his stated age, rating his pain score today at 3/10. He is well developed, well nourished. HEENT: Normocephalic, atraumatic. Extraocular eye muscles are intact. He is wearing a mask for COVID precautions. EXTREMITIES: No clubbing, no cyanosis, no edema. MUSCULOSKELETAL: His lower extremity strength is symmetrical at 5/5 with good sensation from L1-S2. Seated straight leg raising is negative. ASSESSMENT: 1. 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 2. Lumbar radiculopathy. 3. Opioid dependency. 4. Complicated medical management utilizing scheduled opioid medications. 5. Chronic intractable pain. We reviewed the fact that opiate medications are being used to provide analgesia adequate to support activities of daily living, not attempting to achieve a specific pain score on the 0-10 Visual Analog Scale. The current opiate medications are providing sufficient analgesia to allow the patient to participate in activities of daily living. The patient is not exhibiting any aberrant behavior suggestive of drug diversion. The patient is not having any adverse reactions to medications. The patient is not suffering from daytime somnolence or mental acuity changes. The patient is managing opiate-induced constipation with appropriate dpkg-rzs-lgunfru agents and dietary considerations. The patient was counseled on concern for caution with operating a motor vehicle while using opiate medications. PLAN: 1. We discussed treatment options with the patient today. The patient finds his oxycodone 15 mg beneficial in decreasing his pain he experiences from low back as well as his neuropathy. He feels this medication does control his pain quite well and allows him to be as active as he is able with very minimal side effects. We will continue this medication, having Dr. Abdoul Fletcher send electronically for oxycodone #90 for today, 4-week, 8-week releases. 2. I did encourage the patient to have his booster when he is able, though he does have good immunity from having COVID as well as having the vaccine. Time spent with the patient reviewing recent studies and clinical notes and physician reports and physical examination and correlation of findings and [address] [address] PAIN MANAGEMENT CONSULTATION Name: ALO DAVIS Room #: REG [facility]#: [id number] Admission: 05/12/21 Attend Phys: Ester Linares Discharge: Date of : 51 Report #: [id number] medical documentation to determine possible treatment options 13 minutes. Time spent in preparation for appointment, reviewing prescription, monitoring reports, reviewing previous records and treatment options and current medications 5 minutes. Time spent preparing and sending electronic prescriptions with collaborating physician, Dr. Abdoul Fletcher and documentation of visit and plan of treatment 5 minutes. Total time spent 22 minutes. <ELECTRONICALLY SIGNED> By: Ester Linares 05/13/21 0811 [id number] [id number] Ester Linares /nt
== END ==
LOC: PAIN 06:58
PROVIDERS: ATTEND Clinical Nurse Specialist Adult Health
DX: E11.42 Type 2 diabetes mellitus with diabetic polyneuropathy (principal); M79.661 Pain in right lower leg; M79.662 Pain in left lower leg; M54.16 Radiculopathy, lumbar region; G89.29 Other chronic pain; F11.20 Opioid dependence, uncomplicated; Z79.4 Long term (current) use of insulin; Z79.899 Other long term (current) drug therapy

== ENCOUNTER → 2021-08-18 | Outpatient (CLI) | payer OTHER ==
[~2021-08-18] VITALS: Ht 180.3 cm; Wt 126.0 kg
[~2021-08-18] MED LIST changes: +CARDIZEM60 MG PO; +CARVEDILOL25 MG PO; +ELIQUIS5 MG PO; +LANTUS SUBQ; +LIPITOR 40 MG T40 M1 PO; +METFORMIN HCL500 M3 PO; +SORINE 80 MG TA80 M1 PO; +SOTALOL80 MG PO; +XANAX1 MG PO
[2021-08-18 09:47] VITALS: BP 103/79
--- NOTE | 2021-08-18 10:03 | NUR ---
Pain Clinic Assessment: 1. History of Osteoarthritis: DENIES History of Rheumatoid Arthritis: DENIES 2. Height: 5 ft. 11 in. 180.3 cm. Weight: 277.8 lb. oz. 126.010 kg. Patient's BMI: 38.8 3. Vital Signs: BP: 103/79 Pulse: 66 Resp: 16 Temp: 02 Sat: 97 ECG Mon: 4. Pain Intensity: 3 5. Fall Risk: Dizziness: N Needs help standing or walking: N Fallen in the last 3 months: N Fall risk comments: 6. Patient on Blood Thinner: KARLAQUIS 7. History of Hypertension: Y 8. Opioid Therapy greater than 6 weeks: Y Opiate Contract Signed: 01/24/18 9. Risk Assessment Tool Provided: LOW-0 10. Functional Assessment Tool: 11. Recreational Drug Use: Never Drug Type: Tobacco Use: Former Smoker Tobacco Type: Amount or Packs/day: How Many Years: Alcohol Use: No Frequency: Quant:
--- NOTE | 2021-08-19 09:57 | HPC ---
[facility] [place] [address] PAIN MANAGEMENT CONSULTATION Name: ALO DAVIS Room #: REG [facility] Darius.#: [id number] Admission: 08/18/21 Attend Phys: Abdoul Fletcher DO Discharge: Date of : 51 Report #: [id number] THIS REPORT FOR: cc: Shelby Smith,Shelby Allen,Abdoul Velásquez DO ~ cc: Shelby Smith DO DATE OF SERVICE: 08/18/2021 REFERRING PHYSICIAN: Dr. Shelby Smith. CHIEF COMPLAINT: Low back pain, bilateral lower extremity pain. HISTORY OF PRESENT ILLNESS: As you know, the patient is a very pleasant 66-year-old male who suffers from chronic lumbar radiculopathy secondary to central canal stenosis. He complains of chronic low back pain, bilateral lower extremity pain, and paresthesias. He states the medications work well for his peripheral neuropathic pain. He is denying side effects of sleepiness, disorientation, confusion, mental slowing with the use of the medication. Any constipation he is experiencing is controlled well with [id number] medications. He returns today in followup visit requesting refill on medications at similar dosing. He did find it difficult to obtain some of the oxycodone at his previous pharmacy and wishes to switch pharmacies as well. ALLERGIES: FENTANYL, CODEINE. CURRENT MEDICATIONS: Eliquis 5 mg b.i.d., sotalol 80 mg b.i.d., oxycodone 15 mg 3 times a day, rosuvastatin 20 mg once a day, Levemir 100 units before bedtime, indomethacin mg p.r.n., tizanidine 4 mg p.r.n., omeprazole 20 mg per day, metformin 1000 mg b.i.d., sliding scale insulin, losartan/hydrochlorothiazide 100/25 mg once a day, Invokana 300 mg once a day, alprazolam 1 mg q. day, lisinopril 20 mg per day, allopurinol 300 mg per day. SOCIAL HISTORY: The patient denies tobacco, alcohol or IV or illicit drug use. He is retired, unaccompanied today. IMAGING: No new imaging available. PQRS: The patient has known arthritic changes of the lumbar spine, bilateral hips and knees. No rheumatoid arthritis. He is placing current pain score 3/10. He is not a fall risk, has not had a fall in last 3 months. He is on blood thinners in the form of Eliquis secondary to a recent diagnosis of atrial fibrillation. He is treated for hypertension. He is on chronic opioids, has a low opioid addiction potential based on assessment tool. Pain impact 30/70, moderate interference of daily activities secondary to pain. [address] [address] PAIN MANAGEMENT CONSULTATION Name: ALO DAVIS Room #: REG [facility] Anjali#: [id number] Admission: 08/18/21 Attend Phys: Abdoul Fletcher DO Discharge: Date of : 51 Report #: [id number] PHYSICAL EXAMINATION: VITAL SIGNS: Blood pressure 103/79, pulse 66, respiratory rate 16 and unlabored. The patient is 97% on room air. Height 5 feet 11 inches tall, weight 277.8 pounds, BMI calculated 38.8. GENERAL: Well-developed, well-nourished, well-hydrated exogenously obese 66-year-old male, appearing stated age, pain is rated today 3/10. HEENT: Normocephalic, atraumatic. Pupils are round and responsive. He is wearing a mask in compliance with COVID-19 regulations. EXTREMITIES: Show no clubbing, no cyanosis, no edema. MUSCULOSKELETAL: Lower extremity strength equal and symmetrical 5/5, intact to light touch from L1 through S2 dermatomes. Seated straight leg raising negative. Supine straight leg raising is again negative. ANTWAN test is negative. Modified Gaenslen's positive for axial low back pain. ASSESSMENT: 1. Symptomatic lumbar radiculopathy. 2. Bilateral lower extremity peripheral neuropathy. 3. Diabetic peripheral neuropathy. 4. Opioid dependency. 5. Chronic intractable pain. PLAN: 1. The patient returns today in followup visit requesting refill on medications. He feels the medications provided through our services are working well for pain control. Unfortunately, at this point, we cannot discuss with the patient the spinal cord stimulator that we were going to propose today as he has been started on Eliquis for his atrial fibrillation. Once he is off the Eliquis, we can entertain the idea of utilizing the Nevro device for dorsal column stimulation as it has been recently approved for diabetic peripheral neuropathy, which would be perfect for this patient. We will discuss this at followup visit. 2. We reviewed the fact that opiate medications are being used to provide analgesia adequate to support activities of daily living, not attempting to achieve a specific pain score on the 0-10 Visual Analog Scale. The current opiate medications are providing sufficient analgesia to allow the patient to participate in activities of daily living. The patient is not exhibiting any aberrant behavior suggestive of drug diversion. The patient is not having any adverse reactions to medications. The patient is not suffering from daytime somnolence or mental acuity changes. The patient is managing opiate-induced constipation with appropriate bkam-fne-riodezw agents and dietary considerations. The patient was counseled on concern for caution with operating a motor vehicle while using opiate medications. A physical exam was performed and the patient's functional status was evaluated. All patients with back pain were advised against the bed rest greater than 4 days and were advised to return to normal activities. Pain score assessment was [facility] [address] [place] [address] PAIN MANAGEMENT CONSULTATION Name: CANDIEllenALO YOONN Room #: REG [facility]..#: [id number] Admission: 08/18/21 Attend Phys: Abdoul Fletcher DO Discharge: Date of : 51 Report #: [id number] noted and the treatment plan was reviewed with the patient. All current medications, both prescribed and OTC were reviewed and reconciled on the electronic medical record. Tobacco screening was accomplished and smoking cessation was advised when indicated. BMI was noted and diet/exercise modification was recommended for all patients following outside normal parameters. I reviewed with the patient today their responsibilities to safeguard prescription medications, reviewed their responsibility to utilize medications only as prescribed by the physician. They are to seek and receive pain medications only from 1 physician group ( [facility]). They are to use 1 pharmacy and keep the clinic informed if they change pharmacies. Their responsibilities include making followup visits in a timely fashion and to avoid abrupt discontinuation of medication usage. Their responsibilities further include bringing their medications (bottles from the pharmacy with residual pills) to the visit for possible confirmation of pill counts and the patient understands it is their responsibility to submit to random drug screens to ensure both that the medications prescribed are present, and that no other controlled substances are present. All prescriptions provided today were generated electronically. 3. The patient was provided prescription of oxycodone 15 mg dose 1 tab p.o. t.i.d. I have given the patient #90 to release today, 4 weeks from today and 8 weeks from today, 3 months' worth of medication. All prescriptions sent via e-scribe to local pharmacy. We have reviewed the patient's PDMP. There are no concerning findings on the [place] or [place] reports. 4. We will see the patient back in followup visit in 3 months. At that time, I am hopeful the patient will be off his Eliquis and we can then discuss the possibility of utilizing the Nevro dorsal column stimulator to address peripheral neuropathy. <ELECTRONICALLY SIGNED> By: Abdoul Fletcher DO 08/19/21 [id number] Abdoul Fletcher DO /nt
== END ==
LOC: PAIN 09:22
PROVIDERS: ATTEND Anesthesiology Pain Medicine
DX: M54.16 Radiculopathy, lumbar region (principal); E11.40 Type 2 diabetes mellitus with diabetic neuropathy, unspecified; M79.661 Pain in right lower leg; M79.662 Pain in left lower leg; G89.29 Other chronic pain; F11.20 Opioid dependence, uncomplicated; Z79.4 Long term (current) use of insulin; Z79.82 Long term (current) use of aspirin; Z79.899 Other long term (current) drug therapy